=== PATIENT | female | born 1995 | race Caucasian/White ===

== ENCOUNTER 2024-08-04 08:40 | Outpatient (OUT) | payer BC, SELFPAY ==
--- OUTSIDE RECORDS SUMMARY | 2024-07-27 10:00 | XMS_ITS | Encounter Summary ---
Author Organization [facility] Address [address] [place] [address] Care Team Providers Care Computer Forensics Investigator Name Role Phone Harish Andres MD Primary Care Provider [phone] Bina Hilton NP Unavailable [phone] Reason for Visit * Reason Comments Annual Exam Encounter Details Date Type Department Care Team (Late st Contact Info) Description 07/27/2024 10:00 AM EDT [facility] [address] [place] [address] Venessa Puente NP [address] [place] [address] ROHITH (generalized anxiety disorder) (Primary Dx); Wellness examination; Dizziness and giddiness; Hypoglycemia Social History Tobacco Use Types Packs/Day Years Used Date Smoking Tobacco: Never Smokeless Tobacco: Never Alcohol Use Standard Drinks/Week Comments Never 0 (1 standard drink = 0.6 oz pur e alcohol) caffeine: 1-2 cups per day [id number] Health Literacy Answer Date Recor ded How often do you need to hav e someone help you when you read instructions, pamphlets, or other written material from your doctor or pharmacy? Never 10/29/2023 Social Connection and Isolation Panel [NHANES] A nswer Date Recorded In a typical week, how many times do you talk on the phone with family, friends, or neighbors? Once a week 10/29/2023 Frequency of Social Gatherings with Friends and Family Not on file 10/29/2023 How often do you attend buddhism or advent serv ices? Never 10/29/2023 Do you belong to any clubs o r organizations such as buddhism groups, unions, fraternal or athletic groups, or school groups? No 10/29/2023 How often do you attend meet ings of the clubs or organizations you belong to? Never 10/29/2023 Are you , , di vorced, , never , or living with a partner? 10/29/2023 AUDIT-C Answer Date Recorded Q1: How often do you have a drink containing alcohol? Never 10/29/2023 Q2: How many drinks containi ng alcohol do you have on a typical day when you are drinking? Patient does not drink Q3: How often do you have si x or more drinks on one occasion? Never 10/29/2023 Overall Financial Resource Strain (CARDIA) Answe r Date Recorded How hard is it for you to pa y for the very basics like food, housing, medical care, and heating? Not hard at all 10/29/2023 PHQ-2 Answer Date Recorded Patient Health Questionnaire-2 Score 0 10/30/2023 [facility] - Occupational Stress Questionnaire Answer Date Recorded Do you feel stress - tense, restless, nervous, or anxious, or unable to sleep at night because your mind is troubled all the time - these days? Only a little 10/29/2023 Exercise Vital Sign Answer Date Recorde d On average, how many days pe r week do you engage in moderate to strenuous exercise (like a brisk walk)? 2 days 10/29/2023 On average, how many minutes do you engage in exercise at this level? 30 min 10/29/2023 Hunger Vital Sign Answer Date Recorded Within the past 12 months, y ou worried that your food would run out before you got the money to buy more. Never true 10/29/19 24 Within the past 12 months, t he food you bought just didn't last and you didn't have money to get more. Never true 10/29/2023 PRAPARE - Transportation Answer Date Re corded In the past 12 months, has l ack of transportation kept you from medical appointments or from getting medications? No 10/18 In the past 12 months, has l ack of transportation kept you from meetings, work, or from getting things needed for daily living? No 10/29/2023 Housing Stability Vital Sign Answer Slade e Recorded In the last 12 months, was t here a time when you were not able to pay the mortgage or rent on time? No 10/29/2023 Number of Times Moved in the Last Year Not on fi le 10/29/2023 At any time in the past 12 m onths, were you homeless or living in a custodial (including now)? No 10/29/2023 Comments Unknown Sex and Gender Information Value Date Recorded Sex Assigned at Not on file Legal Sex Female 6:39 PM EDT Gender Identity Not on file Sexual Orientation Not on file documented as of this encounter Last Filed Vital Signs Vital Sign Reading Time Taken Comments Blood Pressure 98/68 07/27/2024 10:07 AM EDT Pulse 76 07/27/2024 10:07 AM EDT Temperature 36.9 C (98.5 F) 07/27/2024 10:07 AM EDT Respiratory Rate 18 07/27/2024 10:0 7 AM EDT Oxygen Saturation 98% 07/27/2024 10: 07 AM EDT Inhaled Oxygen Concentration - - Weight 62.1 kg (136 lb 12.8 oz) 025 10:07 AM EDT Height - - Body Mass Index 22.08 10/30/2023 8:37 AM EDT documented in this encounter Patient Instructions * Patient Instructions* Venessa Puente NP - 07/27/2024 10:00 AM EDT Get labs completed Log bood of events documented in this encounter Progress Notes * Venessa Puente NP - 07/27/2024 10:59 AM EDTAssociated Problem(s): Dizziness and giddiness Unclear etiology DD: hypoglycemia, panic attack, cardiac arrhythmia Keep log book fu in 4 weeks Check labs * MOHINDER ALANIS - 07/27/2024 10:00 AM EDT Pt would like to discuss possible low blood sugar- she states she often feels dizzy, shaky, sweaty if she doesn't eat for a little while or when she wakes up that way at times. Pt states she has feltthis way for a few years now. Pt does not recall for sure if there is family hx of diabetes and states she has never had a glucose or A1c done before. Pt would like a refill of her citalopram 20mg tab * Venessa Puente NP - 07/27/2024 10:00 AM EDT Images from the original note were not included. Unique Santos is a 29 y.o. female presents with chief complaint of Annual Exam HPI: Diet: pretty balanced Activity: no Mental Health Concerns: anxiety, Falls in the last year: no Any hearing problems:no Any Vision problems: wears glasses, scheduled for 08/11 Any Hospitalizations in the last year:- no Specialist: chainstitch zipper setter Concerns: Pt would like to discuss possible low blood sugar- she states she often feels dizzy, shaky, sweaty if she doesn't eat for a little while or when she wakes up that way at times. Pt states she has feltthis way for a few years now. Pt does not recall for sure if there is family hx of diabetes and states she has never had a glucose or A1c done before. Episodes infeq, once a month, can happen at random times, can happen regardless of eating or not. When this happens forces self to eat something usually something light d/t feeling nauseated Breakfast: overnight oats, sometimes fast food, lunch: left overs, supper time: chicken, veg. Coffee 2 cups daily, water: about 2-3 per day, does not drink much else. No monster drinks. Pt would like a refill of her citalopram 20mg tab Anxiety Presents for follow-up (dx mid 20's) visit. Symptoms include excessive worry, irritability (occ), muscle tension, nervous/anxious behavior and shortness of breath. Patient reports no chest pain, dizziness, insomnia, nausea, palpitations or suicidal ideas. Symptoms occur occasionally (more social situations). The severity of symptoms is mild. The patient sleeps 7 hours per night. The quality of sleep is good. Nighttime awakenings: several. Compliance with medications is 76-100%. SUBJECTIVE: MEDICATIONS: Current Outpatient Medications Medication Instructions citalopram (CELEXA) 20 mg, Oral, Nightly PARAGARD INTRAUTERINE COPPER IU 1 Intra Uterine Device, Once ALLERGIES: Allergies Allergen Reactions Penicillins Rash REVIEW OF SYMPTOMS: Review of Systems Constitutional: Positive for irritability (occ). Negative for appetite change, chills and fever. HENT: Negative for congestion, ear pain and sore throat. Eyes: Negative for pain, discharge, redness and visual disturbance. Respiratory: Positive for shortness of breath. Negative for cough and wheezing. Cardiovascular: Negative for chest pain, palpitations and leg swelling. Gastrointestinal: Negative for abdominal pain, blood in stool, constipation, diarrhea, nausea and vomiting. Genitourinary: Negative for difficulty urinating, dysuria and frequency. Musculoskeletal: Negative for arthralgias, back pain, joint swelling and myalgias. Skin: Negative for rash and wound. Neurological: Negative for dizziness, tremors, seizures, syncope and headaches. Psychiatric/Behavioral: Negative for behavioral problems, self-injury and suicidal ideas. The patient is nervous/anxious. The patient does not have insomnia. Hematological: Does not bruise/bleed easily. Endocrine: Negative for polydipsia, polyphagia and polyuria. Allergic/Immunologic: Negative for environmental allergies and food allergies. PAST MEDICAL HISTORY Past Medical History: Diagnosis Date Anxiety and depression ([facility]) Hx of ROHITH with panic attacks. Used to be on Celexa - ran out of it, just started using it again oneweek ago. While she was on Celexa - her anxiety/panic disorder was well controlled and she was doing well on it. She was being prescribed Celexa and Xanax by Dr Powell Asthma ([facility]) Past Surgical History: Procedure Laterality Date INTRAUTERINE DEVICE INSERTION 08/06/2021 family history includes Cancer in her maternal grandmother; Coronary artery disease in an other family member; Diabetes in her maternal grandmother; Hypertension in her father and mother; Lung cancerin an other family member. OBJECTIVE: Visit Vitals BP 98/68 (BP Location: Left arm, Patient Position: Sitting, BP Cuff Size: Adult long) Pulse 76 Temp 98.5 ??F (Temporal) Resp 18 Wt 136 lb 12.8 oz SpO2 98% BMI 22.08 kg/m?? Smoking Status Never BSA 1.7 m?? Physical Exam Vitals and nursing note reviewed. Constitutional: General: She is not in acute distress. Appearance: Normal appearance. HENT: Head: Normocephalic and atraumatic. Right Ear: External ear normal. Left Ear: External ear normal. Nose: Nose normal. Mouth/Throat: Mouth: Mucous membranes are moist. Eyes: Extraocular Movements: Extraocular movements intact. Conjunctiva/sclera: Conjunctivae normal. Neck: Vascular: No carotid bruit. Cardiovascular: Rate and Rhythm: Normal rate and regular rhythm. Pulses: Normal pulses. Heart sounds: Normal heart sounds. Pulmonary: Effort: Pulmonary effort is normal. Breath sounds: Normal breath sounds. Abdominal: General: Bowel sounds are normal. There is no distension. Palpations: Abdomen is soft. There is no mass. Tenderness: There is no abdominal tenderness. Musculoskeletal: General: Normal range of motion. Cervical back: Normal range of motion and neck supple. Lymphadenopathy: Cervical: No cervical adenopathy. Skin: General: Skin is warm and dry. Capillary Refill: Capillary refill takes 2 to 3 seconds. Findings: No rash. Neurological: General: No focal deficit present. Mental Status: She is alert and oriented to person, place, and time. Psychiatric: Mood and Affect: Mood normal. Behavior: Behavior normal. Thought Content: Thought content normal. Judgment: Judgment normal. ASSESSMENT AND PLAN: No follow-ups on file. Problem List Items Addressed This Visit ROHITH (generalized anxiety disorder) ([facility]) - Primary Current med: citalopram ROHITH 7=5 Is happy with dose of medications no changes needed Relevant Medications citalopram (CeleXA) 20 MG tablet Wellness examination No wellness exam completed today, only labs ordred Relevant Orders CBC and differential Comprehensive metabolic panel Lipid panel TSH Urinalysis with reflex microscopic (clean catch) Dizziness and giddiness Unclear etiology DD: hypoglycemia, panic attack, cardiac arrhythmia Keep log book fu in 4 weeks Check labs Relevant Orders T4, free Insulin, random Hemoglobin A1c Hypoglycemia Relevant Orders Insulin, random Hemoglobin A1c * Venessa Puente NP - 07/27/2024 6:32 AM EDTAssociated Problem(s): Wellness examination No wellness exam completed today, only labs ordred * Venessa Puente NP - 07/27/2024 6:31 AM EDTAssociated Problem(s): ROHITH (generalized anxiety disorder) Current med: citalopram ROHITH 7=5 Is happy with dose of medications no changes needed documented in this encounter Plan of Treatment Upcoming Encounters Date Type Department Care Team (Late st Contact Info) Description 08/30/2024 10:30 AM EDT Office Visit [facility] [address] [place] [address] Venessa Puente NP [address] [place] [address] Scheduled Orders Name Type Priority Associated Diagnoses Orde r Schedule CBC and differential Lab Routine Wellness examination Expected: 07/27/2024 (Approximate), Expires: 07/27/2025 Comprehensive metabolic panel Lab Routine Wellness examination Expected: 07/27/2024 (Approximate), Expires: 07/27/2025 Lipid panel Lab Routine Wellness examination Expected: 07/27/2024 (Approximate), Expires: 07/27/2025 TSH Lab Routine Wellness examination Expected: 07/27/2024 (Approximate), Expires: 07/27/2025 Urinalysis with reflex microscopic (clean catch) Lab Routine Wellness examination Expected: 07/27/2024 (Approximate), Expires: 07/27/2025 T4, free Lab Routine Dizziness and giddiness Expected: 07/27/2024 (Approximate), Expires: 07/27/2025 Insulin, random Lab Routine Dizziness and giddiness Hypoglycemia Expected: 07/27/2024 (Approximate), Expires: 07/27/2025 Hemoglobin A1c Lab Routine Dizziness and giddiness Hypoglycemia Expected: 07/27/2024 (Approximate), Expires: 07/27/2025 documented as of this encounter Visit Diagnoses Diagnosis ROHITH (generalized anxiety disorder)- Primary Generalized anxiety disorder Wellness examination Dizziness and giddiness Hypoglycemia Hypoglycemia, unspecified documented in this encounter Care Teams Computer Forensics Investigator Relationship Specialty Start Date End Date Harish Andres MD [address] [place] [address] PCP - General Family Medicine 10/16/23 Bina Hilton NP [address] [place] [address] Nurse Practitioner Family Medicine 10/16/23 documented as of this encounter
--- OUTSIDE RECORDS SUMMARY | 2024-08-04 08:50 | XMS_ITS | Clinical Summary ---
Author Organization [facility] Address [address] [place] [address] Care Team Providers Care High [employer] Library Media Specialist Name Role Phone Harish Andres MD Primary Care Provider [phone] Bina Hilton COLORECTAL SURGEON Unavailable [phone] Allergies Active Allergy Reactions Criticality Noted Date Comments Penicillins Rash Low 02/11/2023 Medications PARAGARD INTRAUTERINE COPPER IU 1 Intra Uterine Device by Intrauterine route 1 time Lot # [id number] Exp 02/2025 # [id number], [facility]#: [id number] 08/07/19 22 Active citalopram (CeleXA) 20 MG tabletIndication s:ROHITH (generalized anxiety disorder) Take 1 tablet (20 mg) by mouth at bedtime 90 tablet 07/28/19 25 025 Active citalopram (CeleXA) 20 MG tabletIndication s:ROHITH (generalized anxiety disorder) Take 1 tablet (20 mg) by mouth at bedtime 90 tablet 1 02/18/19 24 025 Discontin ued(Reord er) Active Problems Problem Noted Date Diagnosed Date Dizziness and giddiness 07/27/2024 Assessment & Plan (07/27/2024 10:59 AM EDT): Unclear etiology DD: hypoglycemia, panic attack, cardiac arrhythmia Keep log book fu in 4 weeks Check labs Hypoglycemia 07/27/2024 ROHITH (generalized anxiety disorder) 02/18/2023 Assessment & Plan (07/27/2024 10:46 AM EDT): Current med: citalopram ROHITH 7=5 Is happy with dose of medications no changes needed Assessment & Plan (10/30/2023 2:06 PM EDT): Currently taking Citalopram 20mg Has been on current dose since at least 02/2023. Feels symptoms are well controlled currently. Denies SI/HI. Does not do therapy, reports having good support system at home. Continue current regimen Assessment & Plan (02/18/2023 11:27 AM EST): Patient doing well on Citalopram. No adverse effects noted. Sleeping well. Did not have to use her PRN Xanax in past 6 months. C/w same. Wellness examination 02/18/2023 Assessment & Plan (07/27/2024 6:32 AM EDT): No wellness exam completed today, only labs ordred Assessment & Plan (02/18/2023 11:27 AM EST): Annual Wellness Visit. Reviewed medical surgical and social hx. Reviewed medications. Recommended to follow up with OBGYN for PAP smear. No complains to offer. Encounters Date Type Department Care Team Description 07/27/2024 10:00 AM EDT Office Visit [facility] [address] [place] [address] Venessa Puente NP ROHITH (generalized anxiety disorder) (Primary Dx); Wellness examination; Dizziness and giddiness; Hypoglycemia 07/27/2024 Abstract [facility] [address] [place] [address] Venessa Puente NP 07/27/2024 Bamboo flowsheet [facility] [address] [place] [address] Venessa Puente NP from Last 3 Months Family History Medical History Relation Name Comments Hypertension Father Cancer Maternal Grandmother Diabetes Maternal Grandmother Hypertension Mother Coronary artery disease Other Lung cancer Other Relation Name Status Comments Father Alive Maternal Grandmother Mother Alive Other Sister Alive Social History Tobacco Use Types Packs/Day Years Used Date Smoking Tobacco: Never Smokeless Tobacco: Never Tobacco Cessation:Counseling Given: No Alcohol Use Standard Drinks/Week Comments Never 0 [...] file 10/29/2023 How often do you attend confucianist or restoration serv ices? Never 10/29/2023 Do you belong to any clubs o r organizations such as confucianist groups, unions, fraternal or athletic groups, or [...] Recorded Patient Health Questionnaire-2 Score 0 10/30/2023 [facility] Occupat ional Health - Occupational Stress Questionnaire Answer Date Recorded [...] any time in the past 12 m [facility], were you homeless or living in a nursing home (including now)? No 10/29/2023 Comments Unknown Sex and Gender Information Value Date Recorded Sex Assigned at Not on file Legal Sex Female 6:39 PM EDT Gender Identity Not on file Sexual Orientation Not on file Last Filed Vital Signs Vital Sign Reading [...] 12.8 oz) 025 10:07 AM EDT Height 167.6 cm (5' 6 ) 10/30/2023 8:37 AM EDT Body Mass Index 22.08 10/30/2023 8:37 AM EDT Plan of Treatment Upcoming Encounters Date Type Department Care Team (Late st Contact Info) Description 08/30/2024 10:30 AM EDT Office Visit [facility] [address] [place] [address] Venessa Puente NP [address] [place] [address] Health Maintenance Due Date Last Done Comments HPV/Cotest 2023 Influenza Vaccine (Season Ended) 2024 Cervical Cancer Screening 02/17/2025 Pap Smear 02/17/2025 02/17/2022 Insurance [facility] Member Subscriber Plan / Payer (Ef fective 2022-Present) Name:Unique Santos Relation to Subscriber:Self Name:Unique Santos Payer ID:Not on file Type:Not on file Address: [address] Care Teams High [employer] Library Media Specialist Relationship Specialty Start Date End Date Harish Andres MD [address] [place] [address] PCP - General Family Medicine 10/16/23 Bina Hilton NP [address] [place] [address] Nurse Practitioner Family Medicine 10/16/23
--- OUTSIDE RECORDS SUMMARY | 2024-08-04 08:50 | XMS_ITS | Encounter Summary ---
Author Organization [facility] Address [address] [place] [address] Care Team Providers Care Auctioneer Automobile Name Role Phone Harish Andres MD Primary Care Provider [phone] Bina Hilton NP Unavailable [phone] Encounter Details Date Type Department Care Team (Late st Contact Info) Description 07/27/2024 Abstract [facility] [address] [place] [phone] Venessa Puente NP [address] [place] [address] Social History Tobacco Use Types Packs/Day Years [...] file 10/29/2023 How often do you attend evangelical or rastafarian serv ices? Never 10/29/2023 Do you belong to any clubs o r organizations such as evangelical groups, unions, fraternal or athletic groups, or [...] Patient Health Questionnaire-2 Score 0 10/30/2023 [facility] of Occupat ional Health - Occupational Stress [...] any time in the past [address] [facility], were you homeless or living in a [facility] (including now)? No 10/29/2023 Comments Unknown Sex and Gender Information Value Date Recorded Sex Assigned at Not on file Legal Sex Female 6:39 PM EDT Gender Identity Not on file Sexual Orientation Not on file documented as of this encounter Plan of Treatment Upcoming Encounters Date Type Department Care Team (Late st Contact Info) Description 08/30/2024 10:30 AM EDT Office Visit [facility] [address] [place] [address] Venessa Puente NP [address] [place] [address] documented as of this encounter Visit Diagnoses Not on filedocumented in this encounter Care Teams Auctioneer Automobile Relationship Specialty Start Date End Date Harish Andres MD [address] [place] [phone] PCP - General Family Medicine 10/16/23 Bina Hilton NP [address] [place] [address] Nurse Practitioner Family Medicine 10/16/23 documented as of this encounter
--- OUTSIDE RECORDS SUMMARY | 2024-08-04 08:50 | XMS_ITS | Encounter Summary ---
Author Organization [facility] Address [address] [place] [address] Care Team Providers Care Silk Soaker Name Role Phone Harish Andres MD Primary Care Provider [phone] Bina Hilton NP Unavailable [phone] Encounter Details Date Type Department Care Team (Late st Contact Info) Description 07/27/2024 Bamboo flowsheet [facility] [address] [place] [phone] Venessa Puente NP [address] [place] [address] Social History Tobacco Use Types Packs/Day Years [...] file 10/29/2023 How often do you attend taoist or christian serv ices? Never 10/29/2023 Do you belong to any clubs o r organizations such as taoist groups, unions, fraternal or athletic groups, or [...] Recorded Patient Health Questionnaire-2 Score 0 10/30/2023 [facility] Occupat [facility] - Occupational Stress Questionnaire Answer Date [...] any time in the past 12 m [facility], were you homeless or living in a [facility] (including now)? No 10/29/2023 Comments Unknown Sex [...] Office Visit [facility] [address] [place] [address] Venessa Puente NP [address] [place] [address] documented as of this encounter Visit Diagnoses Not on filedocumented in this encounter Care Teams Silk Soaker Relationship Specialty Start Date End Date Harish Andres MD [address] [place] [phone] PCP - General Family Medicine 10/16/23 Bina Hilton NP [address] [place] [address] Nurse Practitioner Family Medicine 10/16/23 documented as of this encounter
[2024-08-04 09:21] LABS: Basophils Absolute Auto 0.1 10^3/uL (0.0-0.1); Basophils Percent Auto 1.1 % (0.2-2.0); Eosinophils Absolute Auto 0.1 10^3/uL (0.0-0.7); Eosinophils Percent Auto 1.9 % (0.9-7.0); Hematocrit 33.3 % (36.0-48.0); Immature Granulocytes Abs Auto 0.01 10^3/uL (0.00-0.03); Immature Granulocytes Pct Auto 0.2 % (0.0-0.5); Lymphocytes Absolute Auto 1.9 10^3/uL (1.2-3.8); Lymphocytes Percent Auto 40.2 % (20.5-60.0); Mean Corpuscular Hemoglobin 20.4 pg (26.7-34.0); Mean Corpuscular Volume 68.1 fL (81.0-99.0); Monocytes Absolute Auto 0.6 10^3/uL (0.3-0.8); Neutrophils Absolute Auto 2.1 10^3/uL (1.4-6.5); Neutrophils Percent Auto 44.6 % (43.0-75.0); Platelet Count 239 10^3/uL (150-450); Red Blood Count 4.89 10^6/uL (4.20-5.40); Red Cell Distribution Width 18.2 % (11.0-15.0); White Blood Count 4.7 10^3/uL (4.0-11.0)
[2024-08-04 09:30] LABS: Bilirubin Urine NEGATIVE (NEGATIVE); Blood Urine NEGATIVE (NEGATIVE); Clarity Urine CLEAR (CLEAR); Color Urine LT. YELLOW (YELLOW); Glucose Urine UA NEGATIVE (NEGATIVE); Ketones Urine NEGATIVE (NEGATIVE); Leukocyte Esterase Urine NEGATIVE (NEGATIVE); Nitrite Urine NEGATIVE (NEGATIVE); Protein Urine NEGATIVE (NEG/TRACE); Urobilinogen Urine 0.2 EU/dL (0.2-1.0)
[2024-08-04 09:45] LABS: Estimated Average Glucose 108 mg/dL; Glycohemoglobin A1C 5.4 % (4.5-6.2)
[2024-08-04 09:48] LABS: Urine Microscopic Indicated NO
[2024-08-04 10:00] LABS: Alanine Aminotransferase 20 U/L (14-59); Albumin Globulin Ratio 1.1; Alkaline Phosphatase 52 U/L (46-116); Aspartate Amino Transferase 19 U/L (15-37); BUN Creatinine Ratio 23.3; Bilirubin Total 0.4 mg/dL (0.2-1.0); Calcium 8.9 mg/dL (8.5-10.1); Carbon Dioxide 27.1 mmol/L (21.0-32.0); Chloride 102 mmol/L (98-107); Chol HDL Ratio 2.5; Cholesterol 179 mg/dL (<=200); Estimated GFR (African America >60 (>=60 mL/min/1.73m^2); Estimated GFR (Non-African Ame >60 (>=60 mL/min/1.73m^2); Globulin 3.6 g/dL; Glucose 88 mg/dL (74-106); HDL Cholesterol 71 mg/dL (40-60); Potassium 4.1 mmol/L (3.5-5.1); Sodium 139 mmol/L (136-145); Thyroid Stimulating Hormone 1.398 uIU/mL (0.358-3.740); Total Protein 7.6 g/dL (6.4-8.2); Triglycerides 91 mg/dL (<=150); VLDL CHOLESTEROL 18.2 mg/dL
[2024-08-04 10:35] LABS: Free T4 0.93 ng/dL (0.76-1.46)
[2024-08-05 07:08] LABS: Insulin 3.7 uIU/mL (2.6-24.9)
== END 2024-08-04 08:41 | disposition home or self-care (01) ==
LOC: LAB 08:44
PROVIDERS: PCP Nurse Practitioner; Visit Provider Nurse Practitioner
DX: Z00.00 Encounter for general adult medical examination without abnormal findings (principal); R42 Dizziness and giddiness; E16.2 Hypoglycemia, unspecified
CPT/HCPCS: 36415; 80053; 80061; 81003; 83036; 83525; 84439; 84443; 85025

== ENCOUNTER 2024-08-16 09:51 | Outpatient (OUT) | payer BC, SELFPAY ==
--- OUTSIDE RECORDS SUMMARY | 2024-08-16 09:58 | XMS_ITS | Encounter Summary ---
Author Organization [facility] Address [address] [place] [address] Care Team Providers Care Mangle Press Catcher Name Role Phone Harish Andres MD Primary Care Provider [phone] Bina Hilton NP Unavailable [phone] Encounter Details Date Type Department Care Team (Late st Contact Info) Description 07/27/2024 Abstract [facility] [address] [place] [phone] Venessa Puente NP [address] [place] [id number] Social History Tobacco Use Types Packs/Day Years [...] file 10/29/2023 How often do you attend yazdanism or anabaptist serv ices? Never 10/29/2023 Do you belong to any clubs o r organizations such as yazdanism groups, unions, fraternal or athletic groups, or [...] Recorded Patient Health Questionnaire-2 Score 0 10/30/2023 [facility] of Occupat ional Health - Occupational Stress [...] any time in the past 12 m [facility], were you homeless or living in a long-term (including now)? No 10/29/2023 Comments Unknown Sex [...] Visit [facility] [address] [place] [address] Venessa Puente NP [address] [place] [phone] documented as of this encounter Visit Diagnoses Not on filedocumented in this encounter Care Teams Mangle Press Catcher Relationship Specialty Start Date End Date Harish Andres MD [address] [place] [phone] PCP - General Family Medicine 10/16/23 Bina Hilton NP [address] [place] [phone] Nurse Practitioner Family Medicine 10/16/23 documented as of this encounter
--- OUTSIDE RECORDS SUMMARY | 2024-08-16 09:58 | XMS_ITS | Clinical Summary ---
Author Organization [facility] Address [address] [place] [address] Care Team Providers Care Skip Hoist Operator Name Role Phone Harish Andres MD Primary Care Provider [phone] Bina Hilton VISITING TEACHER Unavailable [phone] Allergies Active Allergy Reactions Criticality Noted Date Comments Penicillins Rash Low 02/11/2023 Medications PARAGARD INTRAUTERINE COPPER IU 1 Intra Uterine Device by Intrauterine route 1 time Lot # [id number] Exp 02/2025 # [id number], [facility] [place] [id number] 08/07/19 22 Active citalopram (CeleXA) 20 MG tabletIndication s:ROHITH (generalized anxiety disorder) Take 1 tablet (20 mg) by mouth at bedtime 90 tablet 07/28/19 25 025 Active citalopram (CeleXA) 20 MG tabletIndication s:ROHITH (generalized anxiety disorder) Take 1 tablet (20 mg) by mouth at bedtime 90 tablet 1 02/18/19 24 025 Discontin ued(Reord er) Active Problems Problem Noted Date Diagnosed Date Iron deficiency anemia 08/09/2024 Dizziness and giddiness 07/27/2024 Assessment & Plan [...] Encounters Date Type Department Care Team Description 08/09/2024 Orders Only [facility] [address] [place] [address] Venessa Puente NP Iron deficiency anemia, unspecified iron deficiency anemia type (Primary Dx) 08/04/2024 Clinisync Result Encounter [facility] External Department Unsolicited Venessa Puente NP 07/27/2024 10:00 AM EDT Office Visit [facility] [address] [place] [address] Venessa Puente NP ROHITH (generalized anxiety disorder) (Primary Dx); Wellness examination; Dizziness and giddiness; Hypoglycemia 07/27/2024 Abstract [facility] [address] [place] [address] Venessa Puente NP 07/27/2024 Bamboo flowsheet [facility] [address] [place] [address] Venessa Puente NP from Last 3 Months [...] file 10/29/2023 How often do you attend cheondoism or faith serv ices? Never 10/29/2023 Do you belong to any clubs o r organizations such as cheondoism groups, unions, fraternal or athletic groups, or [...] Recorded Patient Health Questionnaire-2 Score 0 10/30/2023 [facility] [place] of Occupat ional Health - Occupational Stress [...] any time in the past 12 m [facility], were you homeless or living in a long term (including now)? No 10/29/2023 Comments Unknown Sex [...] 08/30/2024 10:30 AM EDT Office Visit [facility] [address] [place] [address] Venessa Puente NP [address] [place] [address] Health Maintenance Due Date Last Done Comments HPV/Cotest 2023 Influenza Vaccine (Season Ended) 2024 Cervical Cancer Screening 02/17/2025 Pap Smear 02/17/2025 02/17/2022 Procedures Procedure Name Priority Date/Time Associated Diagnosis Comments TBH INSULIN Routine 08/04/2024 9:14 AM EDT ALL THYROXINE (T4) FREE Routine 08/04/2024 9:14 AM EDT ALL THYROID STIM HORMONE Routine 08/04/2024 9:14 AM EDT ALL LIPID PROFILE (FASTING) Routine 08/04/2024 9:14 AM EDT [facility] CMP (CMP) (FOR REMOTE [facility] USE) Routine 08/04/2024 9:14 AM EDT MLR HEMOGLOBIN A1C Routine 08/04/2024 9: 14 AM EDT ALL CBC WITH AUTO DIFF Routine 08/04/2024 9:14 AM EDT TBH UA (CLEAN/CATCH) MICROSCOPIC IF INDICATE Routine 08/04/2024 8:57 AM EDT from Last 3 Months Results * TBH INSULIN (08/04/2024 9:14 AM EDT) INSULIN 3.7 2.6 - 24.9 uIU/mL TBH Comment: Performed at: [address] [id number] Anglesmith: Kwadwo Toledo PhD, Phone: [phone] 08/04/2024 9:14 AM EDT 08/04/2024 9:16 AM EDT Narrative CLINISYNC - 08/05/2024 7:08 AM EDT Venessa Puente NP [facility] Final [facility] * MLR HEMOGLOBIN A1C (08/04/2024 9:14 AM EDT) GLYCOHEMOGLOBIN A1C 5.4 4.5 - 6.2 % TB Comment: ADA RECOMMENDED LIMIT 4.0 - 6.0 ADA THERAPEUTIC TARGET < 7.0 ACTION SUGGESTED > 7.0 ESTIMATED AVERAGE GLUCOSE 108 mg/dL TBH 08/04/2024 9:14 AM EDT 08/04/2024 9:16 AM EDT Narrative CLINISYNC - 08/04/2024 9:56 AM EDT Venessa Puente NP [facility] Final [facility] * [facility] CMP (CMP) (FOR REMOTE [facility] USE) (08/04/2024 9:14 AM EDT) SODIUM 139 136 - 145 mmol/L TBH POTASSIUM 4.1 3.5 - 5.1 mmol/L TBH CHLORIDE 102 98 - 107 mmol/L TBH CARBON DIOXIDE 27.1 21.0 - 32.0 mmol/L TBH ANION GAP 14.0 TBH GLUCOSE 88 74 - 106 mg/dL TBH BLOOD UREA NITROGEN 14.0 7.0 - 18.0 mg/dL TBH CREATININE 0.60 0.55 - 1.02 mg/dL TBH TBH EGFR-AF GEORGIAN >60 >=60 mL/min/1. 73m 2 TBH TBH EGFR-NON AF GEORGIAN >60 >=60 mL/min/1. 73m 2 TBH BUN CREATININE RATIO 23.3 TBH CALCIUM 8.9 8.5 - 10.1 mg/dL TBH BILIRUBIN TOTAL 0.4 0.2 - 1.0 mg/dL TBH ASPARTATE AMINO TRANSFERASE 19 15 - 37 U/L TBH ALANINE AMINOTRANSFERASE 20 14 - 59 U/L TBH ALKALINE PHOSPHATASE 52 46 - 116 U/L TBH TOTAL PROTEIN 7.6 6.4 - 8.2 g/dL TBH ALBUMIN LEVEL 4.0 3.4 - 5.0 g/dL TBH GLOBULIN 3.6 g/dL TBH ALBUMIN GLOBULIN RATIO 1.1 TBH 08/04/2024 9:14 AM EDT 08/04/2024 9:16 AM EDT Narrative CLINISYNC - 08/04/2024 10:05 AM EDT Venessa Puente NP CLINISYNC Final Result Performing Organization Address [facility]/ZIP Co de Phone Number [facility] * ALL THYROXINE (T4) FREE (08/04/2024 9:14 AM EDT) FREE T4 0.93 0.76 - 1.46 ng/dL TB 08/04/2024 9:14 AM EDT 08/04/2024 9:16 AM EDT Narrative CLINISYNC - 08/04/2024 10:51 AM EDT Venessa Puente NP [facility] Final [facility] * ALL THYROID STIM HORMONE (08/04/2024 9:14 AM EDT) THYROID STIMULATING HORMONE 1.398 0.358 - 3.740 uIU/mL TB 08/04/2024 9:14 AM EDT 08/04/2024 9:16 AM EDT Narrative CLINISYNC - 08/04/2024 10:05 AM EDT Venessa Cindi VISITING TEACHER CLINISYNC Final Result Performing Organization Address [facility]/ZIP Co de Phone Number [facility] * (ABNORMAL) ALL LIPID PROFILE (FASTING) (08/04/2024 9:14 AM EDT) TRIGLYCERIDES 91 <=150 mg/dL TBH CHOLESTEROL 179 <=200 mg/dL TB HDL CHOLESTEROL 71(H) 40 - 60 mg/dL TB Comment: > or =60 mg/dl - LOW CARDIOVASCULAR RISK <40 mg/dl - HIGH CARDIOVASCULAR RISK LDL CHOLESTEROL CALCULATED 90.0 mg/dL TB Comment: <100 mg/dl OPTIMAL 100-129 mg/dl NEAR OR ABOVE OPTIMAL 130-159 mg/dl BORDERLINE HIGH 160-189 mg/dl HIGH >190 mg/dl VERY HIGH VLDL CHOLESTEROL 18.2 mg/dL TB CHOL HDL RATIO 2.5 TB Comment: 3.3 - 4.4 LOW RISK 4.4 - 7.1 AVERAGE RISK 7.1 - 11.0 MODERATE RISK >11.0 HIGH RISK 08/04/2024 9:14 AM EDT 08/04/2024 9:16 AM EDT [facility] CLINISYNC - 08/04/2024 10:05 AM EDT Venessa Puente NP CLINISYNC Final Result Performing Organization Address [facility] Co de Phone Number [facility] * (ABNORMAL) ALL CBC WITH AUTO DIFF (08/04/2024 9:14 AM EDT) TBH WBC 4.7 4.0 - 11.0 10 3/uL TBH TBH RBC 4.89 4.20 - 5.40 10 6/uL TBH TBH HGB 10.0(L) 12.0 - 16.0 g/dL TBH TBH HCT 33.3(L) 36.0 - 48.0 % TBH TBH MCV 68.1(L) 81.0 - 99.0 fL TBH TBH MCH 20.4(L) 26.7 - 34.0 pg TBH TBH MCHC 30.0 29.9 - 35.2 g/dL TBH TBH RDW 18.2(H) 11.0 - 15.0 % TBH TBH PLT 239 150 - 450 10 3/uL TBH TBH MPV 11.0 9.5 - 13.5 fL TBH NEUTROPHILS PERCENT AUTO 44.6 43.0 - 75.0 % TBH LYMPHOCYTES PERCENT AUTO 40.2 20.5 - 60.0 % TBH MONOCYTES PERCENT AUTO 12.0 1.7 - 12.0 % TBH TBH EO % 1.9 0.9 - 7.0 % TBH BASOPHILS PERCENT AUTO 1.1 0.2 - 2.0 % TBH IMMATURE GRANULOCYTES PCT AUTO 0.2 0.0 - 0.5 % TBH NEUTROPHILS ABSOLUTE AUTO 2.1 1.4 - 6.5 10 3/uL TBH LYMPHOCYTES ABSOLUTE AUTO 1.9 1.2 - 3.8 10 3/uL TBH MONOCYTES ABSOLUTE AUTO 0.6 0.3 - 0.8 10 3/uL TBH TBH EO # 0.1 0.0 - 0.7 10 3/uL TBH BASOPHILS ABSOLUTE AUTO 0.1 0.0 - 0.1 10 3/uL TBH IMMATURE GRANULOCYTES ABS AUTO 0.01 0.00 - 0.03 10 3/uL TBH 08/04/2024 9:14 AM EDT 08/04/2024 9:16 AM EDT Narrative CLINISYNC - 08/04/2024 9:22 AM EDT us Venessa Puente NP CLINISYNC Final Result CLINISYNC TB * TBH UA (CLEAN/CATCH) MICROSCOPIC IF INDICATE (08/04/2024 8:57 AM EDT) COLOR URINE LT. YELLOW YELLOW TBH CLARITY URINE CLEAR CLEAR TBH SPECIFIC GRAVITY URINE 1.010 1.005 - 1.025 TBH PH URINE 7.0 5.0 - 9.0 TBH PROTEIN URINE NEGATIVE NEG/TRACE mg/dL TBH GLUCOSE URINE UA NEGATIVE NEGATIVE mg/dL TBH BILIRUBIN URINE NEGATIVE NEGATIVE TBH KETONES URINE NEGATIVE NEGATIVE mg/dL TBH BLOOD URINE NEGATIVE NEGATIVE TBH NITRITE URINE NEGATIVE NEGATIVE TBH UROBILINOGEN URINE 0.2 0.2 - 1.0 EU/dL TBH LEUKOCYTE ESTERASE URINE NEGATIVE NEGATIVE TBH URINE MICROSCOPIC INDICATED NO TBH 08/04/2024 8:57 AM EDT 08/04/2024 9:16 AM EDT Narrative CLINISYNC - 08/04/2024 9:48 AM EDT us Venessa Puente VISITING TEACHER CLINISYNC Final Result CLINISYNC TBH from Last 3 Months Insurance [facility] Member Subscriber Plan / Payer (Ef fective 2022-Present) Name:Unique Santos Relation to Subscriber:Self Name:Unique Santos Payer ID:Not on file Type:Not on file Address: [address] Care Teams Skip Hoist Operator Relationship Specialty Start Date End Date Harish Andres MD [address] [place] [phone] PCP - General Family Medicine 10/16/23 Bina Hilton NP [address] [place] [address] Nurse Practitioner Family Medicine 10/16/23
--- OUTSIDE RECORDS SUMMARY | 2024-08-16 09:58 | XMS_ITS | Encounter Summary ---
Author Organization [facility] Address [address] [facility] [place] [address] Care Team Providers Care Pocket Cutter Name Role Phone Harish Andres MD Primary Care Provider [phone] Bina Hilton NP Unavailable [phone] Encounter Details Date Type Department Care Team (Late st Contact Info) Description 08/04/2024 Clinisync Result Encounter [facility] External Department Unsolicited Venessa Puente NP [address] [place] [phone] Social History Tobacco Use Types Packs/Day Years [...] file 10/29/2023 How often do you attend adventist or yazidism serv ices? Never 10/29/2023 Do you belong to any clubs o r organizations such as adventist groups, unions, fraternal or athletic groups, or [...] Recorded Patient Health Questionnaire-2 Score 0 10/30/2023 [facility] of Occupat ional Health - Occupational Stress [...] were you homeless or living in a fpc (including now)? No 10/29/2023 Comments Unknown Sex [...] Visit [facility] [address] [place] [address] Venessa Puente, HUMAN RESOURCES HR REPRESENTATIVE [address] [place] [address] documented as of this encounter Procedures Procedure Name Priority Date/Time Associated Diagnosis Comments TBH INSULIN Routine 08/04/2024 9:14 AM EDT MLR HEMOGLOBIN A1C Routine 08/04/2024 9: 14 AM EDT [facility] CMP (CMP) (FOR REMOTE COUNT INCLUDES [facility] USE) Routine 08/04/2024 9:14 AM EDT ALL THYROXINE (T4) FREE Routine 08/04/2024 9:14 AM EDT ALL THYROID STIM HORMONE Routine 08/04/2024 9:14 AM EDT ALL LIPID PROFILE (FASTING) Routine 08/04/2024 9:14 AM EDT ALL CBC WITH AUTO DIFF Routine 08/04/2024 9:14 AM EDT TBH UA (CLEAN/CATCH) MICROSCOPIC IF INDICATE Routine 08/04/2024 8:57 AM EDT documented in this encounter Results * TBH INSULIN (08/04/2024 9:14 AM EDT) INSULIN 3.7 2.6 - 24.9 uIU/mL TB Comment: Performed at: [facility] [id number] Media Arts Professor: Kwadwo Toledo PhD, Phone: [phone] 08/04/2024 9:14 AM EDT 08/04/2024 9:16 AM EDT Narrative CLINISYNC - 08/05/2024 7:08 AM EDT Venessa Puente HUMAN RESOURCES HR REPRESENTATIVE CLINISYNC Final Result Performing Organization Address [facility] Co de Phone Number CLINISYPR TB * ALL THYROXINE (T4) FREE (08/04/2024 9:14 AM EDT) FREE T4 0.93 0.76 - 1.46 ng/dL TBH 08/04/2024 9:14 AM EDT 08/04/2024 9:16 AM EDT Narrative CLINISYNC - 08/04/2024 10:51 AM EDT us Venessa Puente HUMAN RESOURCES HR REPRESENTATIVE CLINISYNC Final Result Performing Organization Address [facility] Co de Phone Number CLINISYPR TB * ALL THYROID STIM HORMONE (08/04/2024 9:14 AM EDT) THYROID STIMULATING HORMONE 1.398 0.358 - 3.740 uIU/mL TBH 08/04/2024 9:14 AM EDT 08/04/2024 9:16 AM EDT Narrative CLINISYNC - 08/04/2024 10:05 AM EDT Venessa Puente HUMAN RESOURCES HR REPRESENTATIVE CLINISYNC Final Result Performing Organization Address [facility] de Phone Number CLINISYPR TB * (ABNORMAL) ALL LIPID PROFILE (FASTING) (08/04/2024 9:14 AM EDT) TRIGLYCERIDES 91 <=150 mg/dL TBH CHOLESTEROL 179 <=200 mg/dL TBH HDL CHOLESTEROL 71(H) 40 - 60 mg/dL TBH Comment: > or =60 mg/dl - LOW CARDIOVASCULAR RISK <40 mg/dl - HIGH CARDIOVASCULAR RISK LDL CHOLESTEROL CALCULATED 90.0 mg/dL TB Comment: <100 mg/dl OPTIMAL 100-129 mg/dl NEAR OR ABOVE OPTIMAL 130-159 mg/dl BORDERLINE HIGH 160-189 mg/dl HIGH >190 mg/dl VERY HIGH VLDL CHOLESTEROL 18.2 mg/dL TBH CHOL HDL RATIO 2.5 TB Comment: 3.3 - 4.4 LOW RISK 4.4 - 7.1 AVERAGE RISK 7.1 - 11.0 MODERATE RISK >11.0 HIGH RISK 08/04/2024 9:14 AM EDT 08/04/2024 9:16 AM EDT Narrative CLINISYNC - 08/04/2024 10:05 AM EDT us Venessa Puente NP CLINISYNC Final Result CLINISYNC [facility] * CCF CMP (CMP) (FOR REMOTE COUNT INCLUDES THE [facility] USE) (08/04/2024 9:14 AM EDT) SODIUM [...] 0.55 - 1.02 mg/dL TBH TBH EGFR-AF URUGUAYAN >60 >=60 mL/min/1. 73m 2 TBH TBH EGFR-NON AF URUGUAYAN >60 >=60 mL/min/1. 73m 2 TBH BUN [...] 3.6 g/dL TBH ALBUMIN GLOBULIN RATIO 1.1 TB 08/04/2024 9:14 AM EDT 08/04/2024 9:16 AM EDT Narrative CLINISYNC - 08/04/2024 10:05 AM EDT Venessa Puente NP CLINISYNC Final Result Performing Organization Address [facility] Co de Phone [facility] * MLR HEMOGLOBIN A1C (08/04/2024 9:14 AM EDT) GLYCOHEMOGLOBIN A1C 5.4 4.5 - 6.2 % [facility] Comment: ADA RECOMMENDED LIMIT 4.0 - 6.0 ADA THERAPEUTIC TARGET < 7.0 ACTION SUGGESTED > 7.0 ESTIMATED AVERAGE GLUCOSE 108 mg/dL TB 08/04/2024 9:1 4 AM EDT 08/04/2024 9:16 AM EDT Narrative CLINISYNC - 08/04/2024 9:56 AM EDT Venessa Puente NP CLINISYPR Final Result Performing Organization Address [facility] de Phone Number * (ABNORMAL) ALL CBC WITH AUTO DIFF (08/04/2024 9:14 AM EDT) TB WBC 4.7 4.0 - 11.0 10 3/uL TBH TBH RBC 4.89 4.20 - 5.40 10 6/uL TBH TBH HGB 10.0(L) 12.0 - 16.0 g/dL TB TBH HCT 33.3(L) 36.0 - 48.0 % TBH TBH MCV 68.1(L) 81.0 - 99.0 fL TBH TBH MCH 20.4(L) 26.7 - 34.0 pg TBH TBH MCHC 30.0 29.9 - 35.2 g/dL TB TBH RDW 18.2(H) 11.0 - 15.0 % [...] us Venessa Puente NP [facility]IS[facility]NC Final [facility] * [facility]H UA (CLEAN/CATCH) MICROSCOPIC IF INDICATE [...] 08/04/2024 9:48 AM EDT us Venessa Puente HUMAN RESOURCES HR REPRESENTATIVE CLINISYNC Final Result CLINISYNC [facility] documented in this encounter Visit Diagnoses Not on filedocumented in this encounter Care Teams Pocket Cutter Relationship Specialty Start Date End Date Harihs Andres MD [address] [place] [address] PCP - General Family Medicine 10/16/23 Bina Hilton NP [address] [place] [address] Nurse Practitioner Family Medicine 10/16/23 documented as of this encounter
[2024-08-16 10:57] LABS: Percent Iron Saturation 3.3 %
[2024-08-16 13:58] LABS: Internal Control Within Normal Limits; Occult Blood Negative
[2024-08-17 02:11] LABS: Vitamin B12 387 pg/mL (232-1245)
[2024-08-17 04:07] LABS: Transferrin 373 mg/dL (192-364)
== END 2024-08-16 09:52 | disposition home or self-care (01) ==
PROVIDERS: PCP Nurse Practitioner; Visit Provider Nurse Practitioner
DX: D50.9 Iron deficiency anemia, unspecified (principal)
CPT/HCPCS: 36415; 82607; 82728; 83540; 83550; 84466; G0328

== ENCOUNTER 2024-10-08 09:48 | Outpatient (OUT) | payer BC, SELFPAY ==
--- OUTSIDE RECORDS SUMMARY | 2024-10-08 09:53 | XMS_ITS | Clinical Summary ---
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 Name Role Phone Harish Andres MD Primary Care Provider [phone] Bina Hilton EMERGENCY WORKER Unavailable [phone] Allergies Active Allergy Reactions Criticality Noted Date Comments Penicillins Rash Low 02/11/2023 Medications PARAGARD INTRAUTERINE COPPER IU 1 Intra Uterine Device by Intrauterine route 1 time Lot # [id number] Exp 02/2025 # [id number], [facility]#: [address]-7 08/07/19 22 Active citalopram (CeleXA) 10 MG tabletIndication s:ROHITH (generalized anxiety disorder) Take 1 tablet (10 mg) by mouth Daily 90 tablet 08/31/19 25 025 Active ferrous sulfate (Fe Tabs) 325 (65 Fe) MG EC tabletIndication s:Iron deficiency anemia, unspecified iron deficiency anemia type Take 1 tablet (325 mg) by mouth in the morning and 1 tablet (325 mg) in the evening. Take before meals. Do not crush, chew, or split. 60 tablet 1 08/17/19 25 025 Active Problems Problem Noted Date Diagnosed Date Iron deficiency anemia 08/09/2024 Assessment & Plan (08/30/2024 11:12 AM EDT): Currently prescribed ferrous sulfate twice a day Check labs in about 3 weeks, order given Dizziness and giddiness 07/27/2024 Assessment & Plan (08/30/2024 11:12 AM EDT): Reviewed labs Improving with addition of ferrous sulfate Check labs in about 3 weeks Assessment & Plan (07/27/2024 10:59 AM EDT): Unclear etiology DD: hypoglycemia, panic attack, cardiac arrhythmia Keep log book fu in 4 weeks Check labs Hypoglycemia 07/27/2024 ROHITH (generalized anxiety disorder) 02/18/2023 Assessment & Plan (08/30/2024 11:13 AM EDT): Current med: citalopram 20mg makes her dizzy Cuts pill in half and does well Will keep at 10mg Assessment & Plan (07/27/2024 10:46 AM EDT): [...] for PAP smear. No complains to offer. Resolved Problems Problem Noted Date Diagnosed Date Resolved Date CARRIE (iron deficiency anemia) 08/16/2024 08/16/2024 Encounters Date Type Department Care Team Description 08/30/2024 10:30 AM EDT Office Visit [facility] [address] [place] [address] Venessa Puente NP Iron deficiency anemia, unspecified iron deficiency anemia type (Primary Dx); Dizziness and giddiness; ROHITH (generalized anxiety disorder) 08/30/2024 Bamboo flowsheet [facility] [address] [place] [address] Venessa Puente NP 08/16/2024 Refill [facility] [address] [place] [address] Venessa Puente NP Iron deficiency anemia, unspecified iron deficiency anemia type (Primary Dx) 08/16/2024 Clinisync Result Encounter [facility] External Department Unsolicited Venessa Puente NP 08/09/2024 Orders Only [facility] [address] [place] [address] Venessa Puente NP Iron deficiency anemia, unspecified iron deficiency anemia type (Primary Dx) 08/04/2024 Clinisync Result Encounter [facility] Unsolicited Venessa Puente NP 07/27/2024 10:00 AM EDT Office Visit [facility] [address] [place] [address] Venessa Puente NP ROHITH (generalized anxiety disorder) (Primary Dx); Wellness examination; Dizziness and giddiness; Hypoglycemia 07/27/2024 Abstract [facility] [address] [place] [address] Venessa Puente NP 07/27/2024 Bamboo flowsheet [facility] [address] [place] [id number] Venessa Puente NP from Last 3 Months [...] file 10/29/2023 How often do you attend scientologist or jain serv ices? Never 10/29/2023 Do you belong to any clubs o r organizations such as scientologist groups, unions, fraternal or athletic groups, or [...] Recorded Patient Health Questionnaire-2 Score 0 10/30/2023 [facility] [place] [facility] Occupat ional [facility] - Occupational Stress [...] any time in the past 12 m [facility], were you homeless or living in a assisted (including now)? No 10/29/2023 Comments Unknown Sex and Gender Information Value Date Recorded Sex Assigned at Not on file Legal Sex Female 6:39 PM EDT Gender Identity Not on file Sexual Orientation Not on file Last Filed Vital Signs Vital Sign Reading Time Taken Comments Blood Pressure 92/62 08/30/2024 10:45 AM EDT Pulse 73 08/30/2024 10:45 AM EDT Temperature 36.8 C (98.3 F) 08/30/2024 10:45 AM EDT Respiratory Rate 18 08/30/2024 10:45 AM EDT Oxygen Saturation 99% 08/30/2024 10:45 AM EDT Inhaled Oxygen Concentration - - Weight 60.9 kg (134 lb 3.2 oz) 08/30/2024 10:45 AM EDT Height 167.6 cm (5' 6 ) 10/30/2023 8:37 AM EDT Body Mass Index 21.66 10/30/2023 8:37 AM EDT Plan of Treatment Upcoming Encounters Date Type Department Care Team (Late st Contact Info) Description 11/09/2024 9:20 AM EDT Office Visit [facility] [address] [place] [address] Venessa Puente NP [address] [place] [address] Health Maintenance Due Date Last Done Comments HPV/Cotest 2023 Cervical Cancer Screening 02/17/2025 Pap Smear 02/17/2025 02/17/2022 Influenza Vaccine (#1) 2025 Postp oned from 10/18/2024 (Patient Refused) Procedures Procedure Name Priority Date/Time Associated Diagnosis Comments OCCULT BLOOD* Routine 08/16/2024 12:30 PM EDT TRANSFERRIN Routine 08/16/2024 10:09 AM EDT VITAMIN B12 Routine 08/16/2024 10:09 AM EDT [facility] FERRITIN Routine 08/16/2024 10:09 AM EDT METRO IRON AND TIBC Routine 08/16/2024 1 0:09 AM EDT TB[facility] INSULIN Routine 08/04/2024 9:14 AM EDT ALL THYROXINE (T4) FREE Routine 08/04/2024 9:14 AM EDT ALL THYROID STIM HORMONE Routine 08/04/2024 9:14 AM EDT ALL LIPID PROFILE (FASTING) Routine 08/04/2024 9:14 AM EDT [facility] CMP (CMP) (FOR REMOTE [facility] USE) Routine 08/04/2024 9:14 AM EDT MLR HEMOGLOBIN A1C Routine 08/04/2024 9: 14 AM EDT ALL CBC WITH AUTO DIFF Routine 08/04/2024 9:14 AM EDT TBH UA (CLEAN/CATCH) MICROSCOPIC IF INDICATE Routine 08/04/2024 8:57 AM EDT from Last 3 Months Results * OCCULT BLOOD* (08/16/2024 12:30 PM EDT) TB OCCULT BLOOD Negative TB 08/16/2024 12:3 0 PM EDT 08/16/2024 1:23 PM EDT Narrative CLINISYNC - 08/16/2024 1:58 PM EDT us Venessa Puente NP LAB BLOOD ORDERABLES Final Resu lt Performing Organization Address [facility] Co de Phone Number [facility] * VITAMIN B12 (08/16/2024 10:09 AM EDT) VITAMIN B12 387 232 - 1245 pg/mL TB Comment: Performed at: [address] [id number] Associate Director Of Biostatistics: Kwadwo Toledo PhD, Phone: [phone] 08/16/2024 10:0 9 AM EDT 08/16/2024 10:13 AM EDT Narrative CLINISYNC - 08/17/2024 2:11 AM EDT us Venessa Puente NP LAB BLOOD ORDERABLES Final Resu lt Performing Organization Address City/[facility]/ZIP Co de Phone Number [facility] * (ABNORMAL) TRANSFERRIN (08/16/2024 10:09 AM EDT) TRANSFERRIN 373(A) 192 - 364 mg/dL TB Comment: Performed at: [address] [id number] Associate Director Of Biostatistics: Kwadwo Toledo PhD, Phone: [phone] 08/16/2024 10:0 9 AM EDT 08/16/2024 10:13 AM EDT Narrative CLINISYNC - 08/17/2024 4:07 AM EDT Venessa Puente EMERGENCY WORKER LAB BLOOD ORDERABLES Final Resu lt Performing Organization Address City/[facility]/ZIP Co de Phone Number [facility] * (ABNORMAL) METRO IRON AND TIBC (08/16/2024 10:09 AM EDT) TBH IRON 15.0(L) 50.0 - 170.0 ug/dL TBH TBH TOTAL IRON BINDING CAPACITY 455.0(H) 250.0 - 450.0 ug/dL TBH TBH PERCENT IRON SATURATION 3.3 % TBH 08/16/2024 10:0 9 AM EDT 08/16/2024 10:13 AM EDT Narrative CLINISYNC - 08/16/2024 11:02 AM EDT Venessa Puente NP CLINISYNC Final Result Performing Organization Address [facility] Co de Phone Number [facility] * (ABNORMAL) [facility] FERRITIN (08/16/2024 10:09 AM EDT) FERRITIN 3.0(L) 8.0 - 252.0 ng/mL TBH 08/16/2024 10:0 9 AM EDT 08/16/2024 10:13 AM EDT Narrative CLINISYNC - 08/16/2024 12:13 PM EDT Venessa Puente EMERGENCY WORKER CLINISYNC Final Result Performing Organization Address City/[facility] Co de Phone Number [facility] * TBH INSULIN (08/04/2024 9:14 AM EDT) INSULIN 3.7 2.6 - 24.9 uIU/mL TBH Comment: Performed at: [address] [id number] Associate Director Of Biostatistics: Kwadwo Toledo PhD, Phone: [phone] 08/04/2024 9:14 AM EDT 08/04/2024 9:16 AM EDT Narrative CLINISYNC - 08/05/2024 7:08 AM EDT Venessa Puente EMERGENCY WORKER CLINISYNC Final Result [facility]INIS[facility]AZ TB * MLR HEMOGLOBIN A1C (08/04/2024 9:14 AM EDT) GLYCOHEMOGLOBIN A1C 5.4 4.5 - 6.2 % TB Comment: ADA RECOMMENDED LIMIT 4.0 - 6.0 ADA THERAPEUTIC TARGET < 7.0 ACTION SUGGESTED > 7.0 ESTIMATED AVERAGE GLUCOSE 108 mg/dL TB 08/04/2024 9:14 AM EDT 08/04/2024 9:16 AM EDT Narrative CLINISYNC - 08/04/2024 9:56 AM EDT Venessa Puente NP CLINISYNC Final Result Performing Organization Address [facility] de Phone Number [facility] * [facility] CMP (CMP) (FOR REMOTE [facility] USE) (08/04/2024 9:14 AM EDT) SODIUM 139 136 - 145 mmol/L TBH POTASSIUM 4.1 3.5 - 5.1 mmol/L TBH CHLORIDE 102 98 - 107 mmol/L TBH CARBON DIOXIDE 27.1 21.0 - 32.0 mmol/L TBH ANION GAP 14.0 TB GLUCOSE 88 74 - 106 mg/dL TB BLOOD UREA NITROGEN 14.0 7.0 - 18.0 mg/dL TBH CREATININE 0.60 0.55 - 1.02 mg/dL TBH TBH EGFR-AF FILIPINO >60 >=60 mL/min/1. 73m 2 TBH TBH EGFR-NON AF FILIPINO >60 >=60 mL/min/1. 73m 2 TB BUN CREATININE RATIO 23.3 TBH CALCIUM 8.9 8.5 - 10.1 mg/dL TBH BILIRUBIN TOTAL 0.4 0.2 - 1.0 mg/dL TB ASPARTATE AMINO TRANSFERASE 19 15 - 37 U/L TB ALANINE AMINOTRANSFERASE 20 14 - 59 U/L TBH ALKALINE PHOSPHATASE 52 46 - 116 U/L TBH TOTAL PROTEIN 7.6 6.4 - 8.2 g/dL TBH ALBUMIN LEVEL 4.0 3.4 - 5.0 g/dL TBH GLOBULIN 3.6 g/dL TBH ALBUMIN GLOBULIN RATIO 1.1 TBH 08/04/2024 9:14 AM EDT 08/04/2024 9:16 AM EDT Narrative CLINISYNC - 08/04/2024 10:05 AM EDT Venessa Puente NP CLINISYNC Final Result [facility] * ALL THYROXINE (T4) FREE (08/04/2024 9:14 AM EDT) FREE T4 0.93 0.76 - 1.46 ng/dL TB 08/04/2024 9:14 AM EDT 08/04/2024 9:16 AM EDT Narrative CLINISYNC - 08/04/2024 10:51 AM EDT Venessa Puente NP CLINISYNC Final Result Performing Organization Address [facility]/ZIP Co de Phone Number [facility] * ALL THYROID STIM HORMONE (08/04/2024 9:14 AM EDT) THYROID STIMULATING HORMONE 1.398 0.358 - 3.740 uIU/mL TB 08/04/2024 9:14 AM EDT 08/04/2024 9:16 AM EDT Narrative CLINISYNC - 08/04/2024 10:05 AM EDT Venessa Puente NP CLINISYNC Final Result Performing Organization Address [facility] Co de Phone Number CLINISYNC TB * (ABNORMAL) ALL LIPID PROFILE (FASTING) [...] us Venessa Puente NP [facility] ([facility]) ALL CBC WITH AUTO DIFF (08/04/2024 9:14 AM EDT) TBH WBC 4.7 4.0 - 11.0 10 3/uL TBH TBH RBC 4.89 4.20 - 5.40 10 6/uL TBH TBH HGB 10.0(L) 12.0 - 16.0 g/dL TBH TBH HCT 33.3(L) 36.0 - 48.0 % TBH TBH MCV 68.1(L) 81.0 - 99.0 fL TBH TB MCH 20.4(L) 26.7 - 34.0 pg TBH [...] Narrative CLINISYNC - 08/04/2024 9:22 AM EDT Venessa Puente NP [facility]NC Final Result [facility] * TBH UA (CLEAN/CATCH) MICROSCOPIC IF INDICATE [...] Narrative CLINISYNC - 08/04/2024 9:48 AM EDT Venessa Puente NP CLINISYNC Final Result [facility]IN[facility]NC [facility] from Last 3 Months Insurance BCBS Care Teams Blacksmith Hammer Operator Relationship Specialty Start Date End Date Harish Andres MD [address] [place] [address] PCP - General Family Medicine 10/16/23 Bina Hilton NP [address] [place] [address] Nurse Practitioner Family Medicine 10/16/23
[2024-10-08 11:07] LABS: Hematocrit 35.3 % (36.0-48.0); Hemoglobin 10.6 g/dL (12.0-16.0); Immature Granulocytes Abs Auto 0.01 10^3/uL (0.00-0.03); Immature Granulocytes Pct Auto 0.2 % (0.0-0.5); Lymphocytes Absolute Auto 1.7 10^3/uL (1.2-3.8); Mean Corpuscular HGB Conc 30.0 g/dL (29.9-35.2); Mean Corpuscular Hemoglobin 21.8 pg (26.7-34.0); Mean Corpuscular Volume 72.5 fL (81.0-99.0); Platelet Count 242 10^3/uL (150-450); Red Blood Count 4.87 10^6/uL (4.20-5.40); White Blood Count 4.6 10^3/uL (4.0-11.0)
[2024-10-08 11:44] LABS: Iron 30.0 ug/dL (50.0-170.0); Percent Iron Saturation 7.1 %; Total Iron Binding Capacity 420.0 ug/dL (250.0-450.0)
[2024-10-08 12:32] LABS: Ferritin 6.0 ng/mL (8.0-252.0)
[2024-10-09 04:07] LABS: Transferrin 336 mg/dL (192-364)
== END 2024-10-08 09:49 | disposition home or self-care (01) ==
LOC: LAB 09:52
PROVIDERS: PCP Nurse Practitioner; Visit Provider Nurse Practitioner
DX: D50.9 Iron deficiency anemia, unspecified (principal)
CPT/HCPCS: 36415; 82728; 83540; 83550; 84466; 85025

== ENCOUNTER 2024-11-30 09:39 | Outpatient (OUT) | payer BC, SELFPAY ==
[2024-11-30 11:09] LABS: Iron 22.0 ug/dL (50.0-170.0); Percent Iron Saturation 5.3 %; Total Iron Binding Capacity 414.0 ug/dL (250.0-450.0)
[2024-11-30 12:14] LABS: Ferritin 6.0 ng/mL (8.0-252.0)
[2024-11-30 12:17] LABS: Hematocrit 34.2 % (36.0-48.0); Hemoglobin 10.9 g/dL (12.0-16.0); Immature Granulocytes Abs Auto 0.01 10^3/uL (0.00-0.03); Immature Granulocytes Pct Auto 0.2 % (0.0-0.5); Lymphocytes Absolute Auto 1.5 10^3/uL (1.2-3.8); Mean Corpuscular HGB Conc 31.9 g/dL (29.9-35.2); Mean Corpuscular Hemoglobin 23.2 pg (26.7-34.0); Mean Corpuscular Volume 72.9 fL (81.0-99.0); Platelet Count 225 10^3/uL (150-450); Red Blood Count 4.69 10^6/uL (4.20-5.40); White Blood Count 4.4 10^3/uL (4.0-11.0)
[2024-12-01 09:09] LABS: Transferrin 317 mg/dL (192-364)
== END 2024-11-30 09:40 | disposition home or self-care (01) ==
LOC: LAB 09:41
PROVIDERS: PCP Nurse Practitioner; Visit Provider Nurse Practitioner
DX: D50.9 Iron deficiency anemia, unspecified (principal)
CPT/HCPCS: 36415; 82728; 83540; 83550; 84466; 85025

== ENCOUNTER 2025-01-11 09:41 | Outpatient (RCR) | payer BC, SELFPAY ==
[2025-01-11 11:09] LABS: Hematocrit 35.5 % (36.0-48.0); Hemoglobin 11.0 g/dL (12.0-16.0); Immature Granulocytes Abs Auto 0.01 10^3/uL (0.00-0.03); Immature Granulocytes Pct Auto 0.2 % (0.0-0.5); Lymphocytes Absolute Auto 1.1 10^3/uL (1.2-3.8); Mean Corpuscular HGB Conc 31.0 g/dL (29.9-35.2); Mean Corpuscular Hemoglobin 23.3 pg (26.7-34.0); Mean Corpuscular Volume 75.1 fL (81.0-99.0); Platelet Count 241 10^3/uL (150-450); Red Blood Count 4.73 10^6/uL (4.20-5.40); White Blood Count 6.0 10^3/uL (4.0-11.0)
[2025-01-11 12:02] LABS: Iron 31.0 ug/dL (50.0-170.0); Percent Iron Saturation 7.3 %; Total Iron Binding Capacity 423.0 ug/dL (250.0-450.0)
[2025-01-11 12:16] LABS: Ferritin 8.0 ng/mL (8.0-252.0)
== END 2025-01-16 23:59 | disposition home or self-care (01) ==
LOC: HEMC 09:41
PROVIDERS: PCP Nurse Practitioner; Visit Provider Internal Medicine Hematology & Oncology
DX: D50.9 Iron deficiency anemia, unspecified (principal); K90.9 Intestinal malabsorption, unspecified; N92.0 Excessive and frequent menstruation with regular cycle; R42 Dizziness and giddiness; R11.0 Nausea; R53.83 Other fatigue
CPT/HCPCS: 36415; 82728; 83540; 83550; 85025; G0463

== ENCOUNTER 2025-02-04 09:17 | Outpatient (RCR) | payer BC, SELFPAY ==
[2025-01-28 09:25] VITALS: PULSE 88; TEMP 36.3; O2SAT 99
[2025-02-04 10:06] VITALS: BP 104/69; PULSE 71; TEMP 36.8; O2SAT 98
== END 2025-02-16 23:59 | disposition home or self-care (01) ==
LOC: HEMC 09:17
PROVIDERS: PCP Nurse Practitioner; Visit Provider Internal Medicine Hematology & Oncology
DX: D50.9 Iron deficiency anemia, unspecified (principal); K90.9 Intestinal malabsorption, unspecified
CPT/HCPCS: 96365; Q0138

== ENCOUNTER 2025-02-08 20:24 | Outpatient (REF) | payer BC, SELFPAY ==
--- OUTSIDE RECORDS SUMMARY | 2025-01-25 07:36 | XMS_ITS | Continuity of Care Document ---
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 Role Phone NO FAMILY, PHYSICIAN Primary Care Provider Venessa Andrade PHP ARCHITECT-C Attending Provider Venessa Puente PHP ARCHITECT-C Primary Care Provider [phone] Kassandra Middleton MD Attending Provider [phone] Francy Julian DO Attending Provider Francy Julian DO Other Provider Care Teams Patient Care Team Team Status: Active Member Role/Relationship Status Dates Venessa Puente PHP ARCHITECT-C Primary Care Provider Active Visit Care Team Team Status: Active Member Role/Relationship Status Dates PHYSICIAN NO FAMILY Primary Care Provider Active Start: November 30, 2024 Venessa Puente PHP ARCHITECT-CAttending ProviderActiveStart: November 30, 2024 Visit Care Team Team Status: Inactive Member Role/Relationship Status Dates Venessa Puente PHP ARCHITECT-C Primary Care Provider Active Start: December 27, 2024 End: December 27, 2024Venessa Puente PHP ARCHITECT-CAttending ProviderActiveStart: December 27, 2024 End: December 27, 2024 Visit Care Team Team Status: Active Member Role/Relationship Status Dates Venessa Puente PHP ARCHITECT-C Primary Care Provider Active Start: January 11, 2025 Nik Schrader ProviderActiveStart: January 11, 2025 Patient Care Team Team Status: Active Member Role/Relationship Status Dates Francy Julian DO Attending Provider Active St art: January 25, 2025 Francy Julian , DOOther ProviderActiveStart: January 25, 2025 Venessa Puente , [facility] Care ProviderActiveStart: January 25, 2025 Chief Complaint and Reason for Visit Chief Complaint Admit Date 2M December 27, 2024 8:40am IRON DEF ANEMIA January 25, 2025 8 :49am Reason for Visit Admit Date Dizziness and giddiness December 27 8:40am ROHITH (generalized anxiety disorder) Novem 2024 8:40am CARRIE (iron deficiency anemia) December 272024 8:40am Allergies, Adverse Reactions, Alerts Allergen Type Severity Reaction Last Updated Verified Status penicillin V Allergy Unknown rash January 14, 2025 8:30am Yes Active Social History Smoking Status Status Start Date End Date Date of Observa tion Never smoked tobacco (finding) January 25, 2025 9:27am Observation Status Observation Response Date of Response Legal Sex Female (finding) Sex Assigned At BirthFemaleDecember 1994 Family History Relationship Condition Age at Onset Recorded Date/T shayla mother Hypertension Unknown fatherHypertensionUnknown Problems Active Problems Problem Diagnosis/Recorded Date Onset Date Stat us ROHITH (generalized anxiety disorder) November 06 7:03am Unknown Active Dizziness and giddiness November 06, 2024 7:03am Un known Active Hypoglycemia November 06, 2024 7:03am Unknown Active CARRIE (iron deficiency anemia) November 06, 2024 7:04 am Unknown Active Inactive/Resolved Problems Problem Diagnosis/Recorded Date Onset Date Stat us Diarrhea August 29, 2023 9:42am Unknown Resol mumtaz Adverse drug effect August 29, 2023 9:42am Unknown Resolved Nausea and vomiting August 29, 2023 9:42am Unknown Resolved Medications Medication Status Dose Units Route Directions Qty Days Refills S tart Date Stop Date End Date Reason(s) Instructions Adherence Ferrous Sulfate 325 mg (65 m g iron) tablet,delayed release (DR/EC) Discontinued 325 MG PO Twice daily 60 1September 2024 7:22amOctober 2024 8:17pmIron deficiency anemia Iron deficiency anemia, unspecifiedCitalopram 10 mg voapvoDedkpsdtkyse94ZOPW Onjcb924Uurazsb 8th, 2025 8:16pmNovember 2024 9:11amGeneralized anxiety disorder Generalized anxiety disorderFerrous Sulfate 325 mg (65 mg iron) tablet,delayed release (DR/EC)Ozkxmzozgend415FDWVViywf rhsmg316Mssgdlu 8th, 2025 8:17pmNov2024 9:11amIron deficiency anemia Iron deficiency anemia, unspecifiedFerrous Sulfate 325 mg (65 mg iron) tablet,delayed release (DR/EC)Fvmzaa597TZHSTtpiv gvoyw3231DnuuqdusDecember 27, 2024 1:59pmIron deficiency anemia Iron deficiency anemia, unspecifiedComplies with drug therapyOndansetron Hcl 4 mg dcuwthTemkdxnrnony6HEHSMfzjq 8 hours as needed for nausea and oxsjlfhp1071 August 28, 2023 11:00pmOctober 2024 4:26amCitalopram 10 mg jxowyqFflero21 LTPMEmwfx086Faeoquqt 10th, 2025 9:11amGeneralized anxiety disorder Generalized anxiety disorderComplies with drug therapyFerrous Sulfate 325 mg (65 mg iron) tablet,delayed release (DR/EC)Dhbjolfyowsh860XZGUDobwd ufwlo8994 December 27, 2024 9:11amNovember 2024 1:59pmIron deficiency anemia Iron deficiency anemia, unspecifiedCitalopram 10 mg qmkgpqQdwkvuwlyowe57HKGV DailySept2024 11:00pmOct2024 8:17pmFerrous Sulfate 325 mg (65 mg iron) tablet,delayed release (DR/EC)DiscontinuedMGPOSept2024 11:00pmSept2024 7:22amCopper (Paragard T 380a) 380 square mm intrauterine pkenshXvkwir1TQLTCUVPSNRCBYMDIieqtfuro 19th, 2025 11:00pmUnknown Relevant Diagnostic Tests and/or Laboratory Data Laboratory Results Test Collection Date/Time Result Date/Time Result Interpretation Reference Range Result Comment Performing Site Transferrin November 30, 2024 8:58am November 30, 2024 8 :58am 317 mg/dL 192-364Performed at: - [facility] [address] [id number] Director: Kwadwo Toledo PhD, Phone: [phone] 14th, 2025 8:58amOctober 2024 8:58am6.0 ng/mLBelow low normal8.0-252.0 Basophils # (Auto)November 30, 2024 8:58amOctober 2024 8:58am0.0 10 3/uL 0.0-0.1Iron SaturationOctober 2024 8:58amOctober 2024 8:58am5.3 % FerritinNovember 2024 10:59amNovember 2024 10:59am8.0 ng/mL8.0-252.0 Iron SaturationNov2024 10:59amNovember 2024 10:59am7.3 % Basophils # (Auto)January 11, 2025 10:59amNovember 2024 10:59am0.1 10 3/uL0.0-0.1Basophils (%) (Auto)November 30, 2024 8:58amOctober 2024 8:58am0.9 %0.2-2.0Iron LevelOctober 2024 8:58amOctober 2024 8:58am 22.0 ug/dLBelow low muaqdl45.0-170.0Iron LevelNov2024 10:59am January 11, 2025 10:59am31.0 ug/dLBelow low jfmixh51.0-170.0Basophils (%) (Auto)January 11, 2025 10:59amNovember 2024 10:59am0.8 %0.2-2.0 Eosinophils # (Auto)November 30, 2024 8:58amOctober 2024 8:58am0.1 10 3/uL0.0-0.7Total Iron Binding CapacityOctober 2024 8:58amOctober 2024 8:92bq898.0 ug/dL250.0-450.0Total Iron Binding CapacityNov2024 10:59amNovember 2024 10:85ei798.0 ug/dL250.0-450.0Eosinophils # (Auto) January 11, 2025 10:59amNovember 2024 10:59am0.1 10 3/uL0.0-0.7 Eosinophils (%) (Auto)November 30, 2024 8:58amOctober 2024 8:58am2.1 % 0.9-7.0Eosinophils (%) (Auto)January 11, 2025 10:59amNovember 2024 10:59am1.3 %0.9-7.0HematocritOct2024 8:58amOctober 2024 8:58am 34.2 %Below low afknlg58.0-48.0HematocritNov2024 10:59amNovember 2024 10:59am35.5 %Below low oizgop08.0-48.0HemoglobinNovember 30, 2024 8:58amOctober 2024 8:58am10.9 g/dLBelow low adzrpz94.0-16.0Hemoglobin January 11, 2025 10:59amNovember 2024 10:59am11.0 g/dLBelow low normal 12.0-16.0Immature Granulocyte # (Auto)November 30, 2024 8:58amOctober 2024 8:58am0.01 10 3/uL0.00-0.03Immature Granulocyte # (Auto)January 11, 2025 10:59amNovember 2024 10:59am0.01 10 3/uL0.00-0.03Immature Granulocyte % (Auto)November 30, 2024 8:58amOctober 2024 8:58am0.2 %0.0-0.5Immature Granulocyte % (Auto)January 11, 2025 10:59amNovember 2024 10:59am0.2 % 0.0-0.5Lymphocytes # (Auto)November 30, 2024 8:58amOctober 2024 8:58am1.5 10 3/uL1.2-3.8Lymphocytes # (Auto)January 11, 2025 10:59amNovember 2024 10:59am1.1 10 3/uLBelow low normal1.2-3.8Lymphocytes (%) (Auto)November 30, 2024 8:58amOctober 2024 8:58am34.8 %20.5-60.0Lymphocytes (%) (Auto) January 11, 2025 10:59amNovember 2024 10:59am17.5 %Below low normal 20.5-60.0Mean Corpuscular HemoglobinOctober 2024 8:58amOctober 2024 8:58am23.2 pgBelow low ruussw83.7-34.0Mean Corpuscular HemoglobinNovember 2024 10:59amNovember 2024 10:59am23.3 pgBelow low xdjzah04.7-34.0Mean Corpuscular Hemoglobin [facility] 2024 8:58amOctober 2024 8:58am 31.9 g/dL29.9-35.2Mean Corpuscular Hemoglobin ConcentNov2024 10:59am January 11, 2025 10:59am31.0 g/dL29.9-35.2Mean Corpuscular VolumeOctober 2024 8:58amOctober 2024 8:58am72.9 fLBelow low ecwcoi14.0-99.0Mean Corpuscular VolumeNovember 2024 10:59amNovember 2024 10:59am75.1 fL Below low pkaxxk59.0-99.0Monocytes # (Auto)November 30, 2024 8:58amOctober 2024 8:58am0.5 10 3/uL0.3-0.8Monocytes # (Auto)January 11, 2025 10:59am January 11, 2025 10:59am0.6 10 3/uL0.3-0.8Monocytes (%) (Auto)November 30, 2024 8:58amOctober 2024 8:58am10.5 %1.7-12.0Monocytes (%) (Auto)January 11, 2025 10:59amNovember 2024 10:59am9.7 %1.7-12.0Mean Platelet Volume November 30, 2024 8:58amOctober 2024 8:58am12.0 fL9.5-13.5Mean Platelet VolumeJanuary 11, 2025 10:59amNovember 2024 10:59am11.5 fL9.5-13.5 Neutrophils # (Auto)November 30, 2024 8:58amOctober 2024 8:58am2.3 10 3/uL1.4-6.5Neutrophils # (Auto)January 11, 2025 10:59amNovember 2024 10:59am4.2 10 3/uL1.4-6.5Neutrophils (%) (Auto)November 30, 2024 8:58amOctober 2024 8:58am51.5 %43.0-75.0Neutrophils (%) (Auto)January 11, 2025 10:59amNovember 2024 10:59am70.5 %43.0-75.0Platelet CountOct2024 8:58amOctober 2024 8:16rm102 10 3/lM553-521Kwrjqzbw CountJanuary 11, 2025 10:59amNovember 2024 10:37hn385 10 3/lV970-152Yfw Blood Count November 30, 2024 8:58amOctober 2024 8:58am4.69 10 6/uL4.20-5.40Red Blood CountJanuary 11, 2025 10:59amNovember 2024 10:59am4.73 10 6/uL4.20-5.40 Red Cell Distribution WidthOct2024 8:58amOctober 2024 8:58am 18.2 %Above high .0-15.0Red Cell Distribution WidthJanuary 11, 2025 10:59amNovember 2024 10:59am17.2 %Above high qjydgc39.0-15.0Corrected White Blood CountOctober 2024 8:58amOctober 2024 8:58am4.4 10 3/uL 4.0-11.0Corrected White Blood CountJanuary 11, 2025 10:59amNovember 2024 10:59am6.0 10 3/uL4.0-11.0 Vital Signs Vital Reading Result Reference Range Collection Date/Time Height 66 [in_i] December 27, 2024 8:79rzKpsfrf75.58 kgDecember 27, 2024 8:45amBody Hvamljceutf76.5 [degF]97.6-99.0December 27, 2024 8:45amHeart Rate81 /jrm22-418 December 27, 2024 8:45amRespiratory rate18 /znn61-06WsnkcmqkDecember 27, 2024 8:45am Oxygen saturation by Pulse %95-100December 27, 2024 8:45amBP Lichcyvz818 mm[Hg]100-140December 27, 2024 8:45amBP Mmozzjhww82 mm[Hg]60-100 December 27, 2024 8:45amBMI (Body Mass Index)22.9 kg/y4YvfnbmxxDecember 27, 2024 8:81eoTfhqhl64 [in_i]January 25, 2025 9:56kjUvfvqg16.50 kgDeceer 2024 9:24amHeart Rate78 /beb59-979BgmlbyniJanuary 25, 2025 11:40amRespiratory rate16 /min 12-24ce2024 11:40amOxygen saturation by Pulse iyfqftll239 %95-100 January 25, 2025 11:40amBP Rbjeueoj642 mm[Hg]100-140Dece2024 11:40am BP Qkwelexiv80 mm[Hg]60-100Dece2024 11:40am Advance Directives Advance Directive Response Recorded Date/ Time Advance Directives No August 28 9:34am Insurance Providers Guarantor Julia Choudhury Address [address] [place] [address] [place] [address]Ksqslao Info.Home Phone: Payer Group Member ID Coverage Type Subscriber Relationship to Subscriber Effective Date Expiration Date Caitlyn JIMENEZ Id: [id number] Weiker , M Id: [id number] [address] [place] [address] Home Phone: [employer] [facility] [id number] Hasselbach , M Id: [id number] [address] [place] [address] Home Phone: Self Encounters Encounter Location(s) Arrival/Admit Date Discharge/Departure Date Discharge/Departure Disposition Provider(s) Non-patient / [facility] ctober 2024 9:58am Venessa Puente NP-CDeparted Physician/Provider Office Visit-[facility] 8:40amNovember 2024 9:08amDischarged to home care or self care (routine discharge)Venessa Puente NP-CNon-patient / Pxx[facility]hrpzh-[facility] 2024 10:59amAbecky Middleton MDNon-patient / [facility] 2024 8:49am Francy Julian DO Recent Diagnosis Onset Date Admit Date Dizziness and giddiness Unknown December 27, 2024 8:40am ROHITH (generalized anxiety disorder) Unknown December 27, 2024 8:40am CARRIE (iron deficiency anemia) Unknown Dec 8:40am Assessments Diagnosis Onset Date Resolution Status Admit Date Dizziness and giddiness acuteDecember 27, 2024 8:40amGAD (generalized anxiety disorder)acuteDecember 27, 2024 8:40amIDA (iron deficiency anemia)acuteDecember 27, 2024 8:40am Plan of Treatment [facility] 9:11amcurrent medication: citalopram at 10mg daily ROHITH 7=3 (12/27/24) resolved is on ferrous sulfate BID most recent labs: 11/30/24: Hgb 10.9, and Iron 22, ferritin 6 (08/11 Hgb 10, Iron 15) has been referred to Hematology and gastro appts with both in December as well as has appt with EDUCATION TRAINER as well I have encouraged her to start taking her ferrous sulfate again at BID, (she had stopped about 2 weeks ago since her count wasnt changing much) DD: CARRIE, menstrual loss, GI bleeding, thalaseemia Future Tests Future scheduled test information is unavailable Pending Tests Pending diagnostic test information is unavailable Future Visits Future appointment information is unavailable Future Procedures Procedure Name Ordered Date Scheduled Date Discharge Order January 25, 2025 11:08am Decem ambar 2024 11:08am Future Medications Future medication information is unavailable Patient Instructions Instruction Admit Date [facility] Hemorrhoids Discha rge Instructions Know your MedsDecember 2024 8:49am Hospital Discharge Instructions Additional Instructions DISCHARGE INSTRUCTIONS FOR UPPER ENDOSCOPY WHAT TO EXPECT: - You may feel full, gassy or cramping after your procedure. In some cases, this may be from a few hours to a day. Walking may help relieve the discomfort. - Your throat may feel sore today from the scope that the doctor passed through your throat to visualize your stomach. Take a throat lozenge or suck on ice to ease the discomfort. - You may notice some streaks of blood in your sputum if the doctor has taken a biopsy. - You should begin to recover from anesthesia within 1 hour of the procedure, however may feel groggy for the next 24 hours. DO's AND DON'Ts: - Call your doctor right away if you have a hard abdomen, severe pain, vomiting or if you cough up large amounts of blood. - Call your doctor if you develop any rashes, hives or difficulty breathing. - If you take 81 mg aspirin for your heart it is safe to resume this medication. - If you take other blood thinner medications your doctor will instruct you when these can safely be resumed. - Do NOT drive for 24 hours. - Do NOT operate machinery such as power tools, lawn mowers, snow blowers, sewing machines, etc. for 24 hours. - Avoid alcoholic beverages and drugs for allergies, nerves, or sleep. - Do NOT stay alone. Do NOT leave your child unattended. - Do NOT make important personal or business decisions or sign any legal documents. - Eat solid foods and drink liquids in smaller amounts than usual until normal appetite returns. If you should experience an upset stomach, liquids high in sugar content (soda, Asa-Aid, non-acid juices) are recommended. - Do NOT smoke. - Do take it easy today. You need not stay in bed, but avoid strenuous activities such as jogging or working out. DISCHARGE INSTRUCTIONS FOR COLONOSCOPY WHAT TO EXPECT: - You may feel full, gassy or cramping after your procedure. In some cases, this may be from a few hours to a day. Walking may help relieve the discomfort. - If you have polyp(s) removed you may note some minor bloody discharge after your first bowel movements. - You should begin to recover from anesthesia within 1 hour of the procedure, however may feel groggy for the next 24 hours. DO's AND DON'Ts: - Call your doctor right away if you have a hard abdomen, sever pain, are passing lots of bright red blood or clots. - Call your doctor if you develop any rashes, hives or difficulty breathing. - Let your doctor know if you have not had a bowel movement by 3 days after your procedure. - If you take 81 mg aspirin for your heart it is safe to resume this medication. - If you take other blood thinner medications your doctor will instruct you when these can safely be resumed. - Do NOT drive for 24 hours. - Do NOT operate machinery such as power tools, lawn mowers, snow blowers, sewing machines, etc. for 24 hours. - Avoid alcoholic beverages and drugs for allergies, nerves, or sleep. - Do NOT stay alone. Do NOT leave your child unattended. - Do NOT make important personal or business decisions or sign any legal documents. - Eat solid foods and drink liquids in smaller amounts than usual until normal appetite returns. If you should experience an upset stomach, liquids high in sugar content (soda, Asa-Aid, non-acid juices) are recommended. - You can resume normal activities tomorrow. FOLLOW UP & RECOMMENDATIONS: -Please call the office and make a follow up appointment to see me if symptoms persist -Notify the doctor if you have any problems. -Repeat colonoscopy at 43 years of age for screening purposes -Follow up with PCP. - Office number [phone].
--- OUTSIDE RECORDS SUMMARY | 2025-02-08 13:00 | XMS_ITS | Encounter Summary ---
Author Organization [facility] Address [address] [place] [address] Care Team Providers Care Textile Converter Name Role Phone Harish Andres MD Primary Care Provider [phone] Bina Hliton NP Unavailable [phone] Reason for Visit * ReasonCommentsWell Women Visit Encounter Details DateTypeDepartmentCare Team (Latest Contact Info)Lgjvfuurbwg97/23/2025 1:00 PM ESTProcedure Visit [facility] [address] [place], [id number] Murray Powell DO [address] [place] [id number] Well woman exam with routine gynecological exam Social History Tobacco UseTypesPacks/DayYears UsedDateSmoking Tobacco: NeverSmokeless Tobacco: NeverAlcohol UseStandard Drinks/WeekCommentsNever0 (1 standard drink = 0.6 oz pure alcohol)caffeine: 1-2 cups per [id number] Health LiteracyAnswerDate Recorded How often do you need to have someone help you when you read instructions, pamphlets, or other written material from your doctor or pharmacy?Never 10/29/2023Social Connection and Isolation PanelAnswerDate RecordedIn a typical week, how many times do you talk on the phone with family, friends, or neighbors?Once a week10/29/2023Frequency of Social Gatherings with Friends and FamilyNot on file10/29/2023How often do you attend faith or yarsanism services? Never10/29/2023o you belong to any clubs or organizations such as faith groups, unions, fraternal or athletic groups, or school groups?No10/29/2023How often do you attend meetings of the clubs or organizations you belong to?Never 10/29/2023re you , , , , never , or living with a partner?Djrgxrx7910/29/2023UDIT-CAnswerDate RecordedQ1: How often do you have a drink containing alcohol?Never10/29/2023Q2: How many drinks containing alcohol do you have on a typical day when you are drinking?Patient does not drink10/29/2023Q3: How often do you have six or more drinks on one occasion?Never10/29/2023Overall Financial Resource Strain (CARDIA)AnswerDate RecordedHow hard is it for you to pay for the very basics like food, housing, medical care, and heating?Not hard at all10/29/2023HQ-2AnswerDate Recorded Patient Health Questionnaire-2 [id number] [place] of Occupational Health - Occupational Stress QuestionnaireAnswerDate RecordedDo you feel stress - tense, restless, nervous, or anxious, or unable to sleep at night because your mind is troubled all the time - these days?Only a qgkvka9110/29/2023Exercise Vital SignAnswerDate RecordedOn average, how many days per week do you engage in moderate to strenuous exercise (like a brisk walk)?2 days10/29/2023On average, how many minutes do you engage in exercise at this level?30 min10/29/2023Hunger Vital SignAnswerDate RecordedWithin the past 12 months, you worried that your food would run out before you got the money to buymore.Never true10/29/2023 Within the past 12 months, the food you bought just didn't last and you didn't have money to get more.Never true10/29/2023RAPARE - TransportationAnswerDate RecordedIn the past 12 months, has lack of transportation kept you from medical appointments or from getting medications?No10/29/2023In the past 12 months, has lack of transportation kept you from meetings, work, or from getting things needed for daily living?No10/29/2023Housing Stability Vital SignAnswerDate RecordedIn the last 12 months, was there a time when you were not able to pay the mortgage or rent on time?No10/29/2023Number of Times Moved in the Last Year Not on file10/29/2023t any time in the past 12 months, were you homeless or living in a alf (including now)?No10/29/2023CommentsNoSex and Gender InformationValueDate RecordedSex Assigned at BirthNot on fileLegal SexFemale 05/01/2022 6:39 PM EDTGender IdentityNot on fileSexual OrientationNot on file documented as of this encounter Last Filed Vital Signs Vital SignReadingTime TakenCommentsBlood Gdavssxm557/6402/08/2025 1:05 PM EST Pulse--Temperature--Respiratory Rate--Oxygen Saturation--Inhaled Oxygen Concentration--Edbwwr95.9 kg (140 lb 12.8 oz)02/08/2025 1:05 PM ESTHeight--Body Mass Index22.7310/30/2023 8:37 AM EDTdocumented in this encounter Progress Notes * Zelda Soto LPN - 02/08/2025 1:00 PM EST Reason for Appointment: Patient ID: Unique Santos is a 30 y.o. female who presents for Well Women Visit Patient presents today for Annual Exam. MEDICATIONS Current Outpatient Medications Medication Instructions citalopram (CELEXA) 10 mg, Oral, Daily ferrous sulfate 325 mg, 2 times daily with meals PARAGARD INTRAUTERINE COPPER IU 1 Intra Uterine Device, Once ALLERGIES Allergies Allergen Reactions Penicillin V Other Reaction(s): rash Penicillins Rash PROBLEMS Active Ambulatory Problems Diagnosis Date Noted ROHITH (generalized anxiety disorder) 02/18/2023 Wellness examination 02/18/2023 Dizziness and giddiness 07/27/2024 Hypoglycemia 07/27/2024 Iron deficiency anemia 08/09/2024 Resolved Ambulatory Problems Diagnosis Date Noted CARRIE (iron deficiency anemia) 08/16/2024 Past Medical History: Diagnosis Date Anemia Anxiety and depression Asthma (HCC) HISTORY PAST MEDICAL HISTORY SOCIAL HISTORY Past Medical History: Diagnosis Date Anemia Anxiety and depression Hx of ROHITH with panic attacks. Used to be on Celexa - ran out of it, just started using it again oneweek ago. While she was on Celexa - her anxiety/panic disorder was well controlled and she was doing well on it. She was being prescribed Celexa and Xanax by Dr Powell [facility] ([facility]) Social History Tobacco Use Smoking status: Never Smokeless tobacco: Never Vaping Use Vaping status: Never Used Substance Use Topics Alcohol use: Never Comment: caffeine: 1-2 cups per day Drug use: Never FAMILY HISTORY Family History Problem Relation Name Age of Onset Hypertension Mother Hypertension Father Diabetes Maternal Grandmother Cancer Maternal Grandmother Coronary artery disease Other Lung cancer Other SURGICAL HISTORY Past Surgical History: Procedure Laterality Date INTRAUTERINE DEVICE INSERTION 08/06/2021 REVIEW OF SYSTEMS Review of Systems: Review of Systems Constitutional: Negative. HENT: Negative. Eyes: Negative. Respiratory: Negative. Cardiovascular: Negative. Gastrointestinal: Negative. Genitourinary: Negative. Musculoskeletal: Negative. Skin: Negative. Neurological: Negative. All other systems reviewed and are negative. Hematological: Negative. Endocrine: Negative. Allergic/Immunologic: Negative. OBJECTIVE Objective: Physical Exam Constitutional: Appearance: Normal appearance. She is well-developed. Genitourinary: Vulva normal. Breasts: Breasts are soft. Right: Normal. Left: Normal. Cardiovascular: Rate and Rhythm: Normal rate and regular rhythm. Pulmonary: Effort: Pulmonary effort is normal. Breath sounds: Normal breath sounds. Abdominal: General: Bowel sounds are normal. There is no distension. Palpations: Abdomen is soft. Tenderness: There is no abdominal tenderness. There is no guarding or rebound. Musculoskeletal: General: No swelling. Normal range of motion. Right lower leg: No edema. Left lower leg: No edema. Neurological: Mental Status: She is alert and oriented to person, place, and time. Skin: General: Skin is warm and dry. Psychiatric: Mood and Affect: Mood normal. Behavior: Behavior normal. Vitals and nursing note reviewed. Exam conducted with a wet plant operator present. Vitals: Estimated body mass index is 22.73 kg/m?? as calculated from the following: Height as of 10/30/23: 5' 6 . Weight as of this encounter: 140 lb 12.8 oz. BP: 102/64 Patient's last menstrual period was 01/31/2025. ASSESSMENT & PLAN ICD-10-CM 1. Well woman exam with routine gynecological exam Z01.419 Pap Smear HPV DNA probe, amplified Orders Placed This Encounter Procedures HPV DNA probe, amplified Annual Wellness Exam: Patient presents today for routine annual exam. Patient states she has no current complaints. Patients vitals were reviewed and within normal limits. Growth and development is noted to be appropriate for age. Menstrual history is noted to be regular with no concerns reported. No mental health concerns was expressed. Pap Smear: Speculum was inserted into the vagina and pap was obtained without difficulty. HPV testing was performed per age guideline. Patient was advised that pap results could take anywhere from 7 to 10 days to receive and our office will reach out to the patient with those once we have them. Patient can also view results via [employer]. I reinforced importance of condom use for STI prevention. Patient declined cultures to be performed with today's visit. Breast Exam: Upon examination, clinical breast exam was noted to be normal. Patient was counseled on breast self-awareness, including the importance of knowing what is normal for her own breasts and promptly reporting any changes such as new lumps, skin dimpling, nipple discharge, or pain. Screening mammogram recommended annually beginning at age 40 or earlier if risk factors are present. Discussed signs and symptoms of breast cancer and when to seek medical attention. Answered all patient questions. Contraceptive Counseling (if applicable): Patient is currently using IUD as a form of contraceptive. Follow Up: Patient is to return to our office in one year for annual exam unless needed otherwise. Documented by Zelda Soto LPN on behalf of: Murray Powell DO documented in this encounter Plan of Treatment DateTypeDepartmentCare Team (Latest Contact Info)Rugtakufkyp13/06/2026 9:30 AM ESTProcedure Visit [facility] [address] [place] [phone] Murray Powell DO [address] [place] [address] 02/23/2026 10:00 AM ESTProcedure Visit [facility] [address] [facility] [place] [phone] Murray Powell DO [address] [place] [address] NameTypePriorityAssociated DiagnosesOrder SchedulePap SmearPathology and CytologyRoutine Well woman exam with routine gynecological exam Ordered: 02/08/2025HPV DNA probe, amplifiedMicrobiologyRoutine Well woman exam with routine gynecological exam Ordered: 02/08/2025documented as of this encounter Visit Diagnoses Diagnosis Well woman exam with routine gynecological exam Routine gynecological examination documented in this encounter Care Teams Team MemberRelationshipSpecialtyStart DateEnd Date Harish Andres MD [address] [place] [address] PCP - GeneralFamily Medicine10/16/23 Bina Hilton NP Nurse PractitionerFamily Medicine10/16/23documented as of this encounter
--- OUTSIDE RECORDS SUMMARY | 2025-02-08 20:27 | XMS_ITS | Encounter Summary ---
Author Organization [facility] Address [address] [place] [address] Care Team Providers Care Business Continuity Consultant Name Role Phone Harish Andres MD Primary Care Provider Bina Hilton MILKER MACHINE Unavailable [phone] Encounter Details DateTypeDepartmentCare Team (Latest Contact Info)Tuxdcekqiaa97/23/2025amboo flowsheet [facility] [address] [place] [address] Murray Powell DO [address] [place], [facility] Social History Tobacco UseTypesPacks/DayYears UsedDateSmoking Tobacco: NeverSmokeless Tobacco: NeverAlcohol UseStandard Drinks/WeekCommentsNever0 (1 standard drink = 0.6 oz pure alcohol)caffeine: 1-2 cups per [id number] Health LiteracyAnswerDate Recorded How often do you [...] FamilyNot on file10/29/2023How often do you attend methodist or pentecostal services? Never4Do you belong to any clubs or organizations such as methodist groups, unions, fraternal or athletic groups, or school groups?No10/29/2023How often do you attend meetings of the clubs or organizations you belong to?Never 10/29/2023re you , , , , never , or living with a partner?Tixxkgo1410/29/2023UDIT-CAnswerDate RecordedQ1: How often do you have a [...] hard at all10/29/2023HQ-2AnswerDate Recorded Patient Health Questionnaire-2 [id number] [facility] hospital [place] of Occupational Health - Occupational Stress QuestionnaireAnswerDate RecordedDo you feel stress - tense, restless, nervous, or anxious, or unable to sleep at night because your mind is troubled all the time - these days?Only a crkzvm5410/29/2023Exercise Vital SignAnswerDate RecordedOn average, how many days [...] Moved in the Last Year Not on file4At any time in the past 12 months, were you homeless or living in a care home (including now)?No4CommentsNoSex and Gender InformationValueDate RecordedSex Assigned at BirthNot on fileLegal SexFemale 05/01/2022 6:39 PM EDTGender IdentityNot on fileSexual OrientationNot on file documented as of this encounter Plan of Treatment DateTypeDepartmentCare Team (Latest Contact Info)Ndkocmsfgwa56/06/2026 9:30 AM ESTProcedure Visit [facility] [address] [place] [address] Murray Powell, DO [address] [place], [place] [address] 02/23/2026 10:00 AM ESTProcedure Visit [facility] [address] [place] [phone] Murray Powell, DO [address] [place], [facility]11 documented as of this encounter Visit Diagnoses Not on filedocumented in this encounter Care Teams Team MemberRelationshipSpecialtyStart DateEnd Date Harish Andres MD [address] [place] [phone] PCP - GeneralFamily Medicine10/16/23 Bina Hilton NP Nurse PractitionerFamily Medicine10/16/23documented as of this encounter
--- OUTSIDE RECORDS SUMMARY | 2025-02-08 20:27 | XMS_ITS | Clinical Summary ---
Author Organization [facility] Address [address] [place] [address] Care Team Providers Care Web Offset Press Feeder Name Role Phone Harish Andres MD Primary Care Provider [phone] Bina Hilton NP Unavailable [phone] Allergies Active AllergyReactionsCriticalityNoted DateCommentsPenicillin V103/16/2024 Other Reaction(s): rash MoyenfjplfxWvbdGlb61/26/2023 Medications MedicationSigDispense QuantityRefillsLast FilledStart DateEnd DateStatus PARAGARD INTRAUTERINE COPPER IU 1 Intra Uterine Device by Intrauterine route 1 time Lot # [id number] Exp 02/2025 # [id number], [facility]#: [id number]/20/2022Active citalopram (CeleXA) 10 MG tablet Indications:ROHITH (generalized anxiety disorder)Take 1 tablet (10 mg) by mouth Daily 90 tablet 5Active ferrous sulfate 325 (65 Fe) MG EC tablet Take 325 mg by mouth in the morning and 325 mg in the evening. Take with meals. 5Active Active Problems ProblemNoted DateDiagnosed DateIron deficiency ccdqej8308/09/2024 Assessment & Plan (08/30/2024 11:12 AM EDT): Currently prescribed ferrous sulfate twice a day Check labs in about 3 weeks, order given Dizziness and epittnktm65/10/2025 Assessment & Plan (08/30/2024 11:12 AM EDT): Reviewed labs Improving with addition of ferrous sulfate Check labs in about 3 weeks Assessment & Plan (07/27/2024 10:59 AM EDT): Unclear etiology DD: hypoglycemia, panic attack, cardiac arrhythmia Keep log book fu in 4 weeks Check labs Tcbyhcfplaja03/10/2025GAD (generalized anxiety disorder)02/18/2023 Assessment & Plan (08/30/2024 11:13 AM EDT): [...] in past 6 months. C/w same. Wellness rntuujmgrxj65/02/2024 Assessment & Plan (07/27/2024 6:32 AM EDT): No wellness exam completed today, only labs ordred Assessment & Plan (02/18/2023 11:27 AM EST): Annual Wellness Visit. Reviewed medical surgical and social hx. Reviewed medications. Recommended to follow up with OBGYN for PAP smear. No complains to offer. Resolved Problems ProblemNoted DateDiagnosed DateResolved DateIDA (iron deficiency anemia) Encounters DateTypeDepartmentCare EelsQofmimqeogn34/23/2025 1:00 PM ESTProcedure Visit [facility] [address] [place] [address] [place] [address] Murray Powell, DO Well woman exam with routine gynecological exam02/08/2025amboo flowsheet [facility] [address] [address] Murray Powell DO 02/08/20257040Kyyxfq24/14/1520Ugtwog57/01/2025Telephone [facility] [address] [address] Yi Brewer MA 12/16/2024Telephone [facility] [address] [address] Marion Rose MA 12/14/2024Telephone [facility] [address] [address] Marion Rose MA 12/13/2024 8:50 AM EDTOffice Visit [facility] [address] [address] Ina Tee PA Yeast infection (Primary Dx); Vaginal itching; Vaginal odor; Vaginal gyxgqaral96/27/2025External Result Encounter [facility] Unsolicited Bernice Mulligan NP 12/13/2024amboo flowsheet [facility] [address] [address] Ina Tee, PA 12/06/20245360Iuxhkc94/20/2025Orders Only [facility] [address] [address] Adelina Retana LPN from Last 3 Months Family History Medical HistoryRelationNameCommentsHypertensionFatherCancerMaternal Grandmother DiabetesMaternal GrandmotherHypertensionMotherCoronary artery diseaseOtherLung cancerOtherRelationNameStatusCommentsFatherAliveMaternal GrandmotherMotherAlive OtherSisterAlive Social History Tobacco UseTypesPacks/DayYears UsedDateSmoking Tobacco: NeverSmokeless Tobacco: Never Tobacco Cessation:Counseling Given: No Alcohol UseStandard Drinks/WeekCommentsNever0 (1 standard drink = 0.6 oz pure alcohol)caffeine: 1-2 cups per [id number] Health LiteracyAnswerDate RecordedHow often do you need to have someone help you when you read instructions, pamphlets, or other written material from your doctor or pharmacy?Never 10/29/2023Social Connection and Isolation PanelAnswerDate RecordedIn a typical week, how many times do you talk on the phone with family, friends, or neighbors?Once a week10/29/2023Frequency of Social Gatherings with Friends and FamilyNot on file10/29/2023How often do you attend sikhism or yazdanism services? Never10/29/2023o you belong to any clubs or organizations such as sikhism groups, unions, fraternal or athletic groups, or school groups?No10/29/2023How often do you attend meetings of the clubs or organizations you belong to?Never 10/29/2023re you , , , , never , or living with a partner?Mcmqiqn6410/29/2023UDIT-CAnswerDate RecordedQ1: How often do you have a [...] hard at all10/29/2023HQ-2AnswerDate Recorded Patient Health Questionnaire-2 Xrevf080Finut[facility] of Occupational Health - Occupational Stress QuestionnaireAnswerDate RecordedDo you feel stress - tense, restless, nervous, or anxious, or unable to sleep at night because your mind is troubled all the time - these days?Only a htspxd2610/29/2023Exercise Vital SignAnswerDate RecordedOn average, how many days [...] EDTGender IdentityNot on fileSexual OrientationNot on file Last Filed Vital Signs Vital SignReadingTime TakenCommentsBlood Lzcjcnpu806/6402/08/2025 1:05 PM EST Utqnm660608/30/2024 10:45 AM MRWQrrrpsejfmo84.8 ??C (98.3 ??F)08/30/2024 10:45 AM EDTRespiratory Cyhb940008/30/2024 10:45 AM EDTOxygen Zyeiezudkx54%08/30/2024 10:45 AM EDTInhaled Oxygen Concentration--Aszoyy59.9 kg (140 lb 12.8 oz)02/08/2025 1:05 PM JHZFxlkfe376.6 cm (5' 6 )10/30/2023 8:37 AM EDTBody Mass Index22.73 10/30/2023 8:37 AM EDT Plan of Treatment DateTypeDepartmentCare Team (Latest Contact Info)Mxtuatmytws78/06/2026 9:30 AM ESTProcedure Visit [facility] [address] [place] [address] [place] [address] Murray Powell, DO [address] [place], [place] [id number] 02/23/2026 10:00 AM ESTProcedure Visit [facility] [address] [place] [address] [place] [address] Murray Powell, DO [address] [place] [address] Procedures Procedure NamePriorityDate/TimeAssociated DiagnosisCommentsRECURRENT VAGINITIS (HTRX)Bbkqmpr9312/13/2024 11:53 AM EDT POCT URINALYSIS EXUEWFNMMmwcoey77/27/2025 9:02 AM EDT Vaginal itching Vaginal odor Vaginal discharge from Last 3 Months Results * (ABNORMAL) RECURRENT VAGINITIS (HTRX) (12/13/2024 11:53 AM EDT)ComponentValue Ref RangeTest MethodAnalysis TimePerformed AtPathologist SignatureATOPOBIUM WUHVENX18.472(A)19.961 - 24.689 ppm12/14/2024 6:52 AM EDTHealthTrackRx at LabPortATOPOBIUM VAGINAEDetected(A)19.961 - 24.689 ppm12/14/2024 6:52 AM EDT [facility] at LabPortBVAB 2,3 (BACTERIAL VAGINOSIS ASSOCIATED BACTERIA 2, 3); MOBILUNCUS SPP10.656(A)19.961 - 24.689 ppm12/14/2024 6:52 AM EDT [facility] at LabPortBVAB 2,3 (BACTERIAL VAGINOSIS ASSOCIATED BACTERIA 2, 3); MOBILUNCUS SPPDetected(A)19.961 - 24.689 ppm12/14/2024 6:52 AM EDT [facility] at LabPortCANDIDA ALBICANS, PARAPSILOSIS, UJFCWAFFMD861.000 - 30.347 ppm12/14/2024 6:52 AM EDTHealthTrackRx at LabPortCANDIDA ALBICANS, PARAPSILOSIS, TROPICALISNot Koptzuwj95.000 - 30.347 ppm12/14/2024 6:52 AM EDT [facility] at LabPortCANDIDA KGLGZNZI916.000 - 31.618 ppm12/14/2024 6:52 AM EDTHealthTrackRx at LabPortCANDIDA GLABRATANot Wocgsohs07.000 - 31.618 ppm 12/14/2024 6:52 AM EDTHealthTrackRx at LabPortCANDIDA RYFBFD920.000 - 30.873 ppm12/14/2024 6:52 AM EDTHealthTrackRx at LabPortCANDIDA KRUSEINot Detected 23.000 - 30.873 ppm12/14/2024 6:52 AM EDTHealthTrackRx at LabPortCHLAMYDIA TQZHNWNAWTY465.000 - 31.586 ppm12/14/2024 6:52 AM EDTHealthTrackRx at LabPort CHLAMYDIA TRACHOMATISNot Arjcbcme81.000 - 31.586 ppm12/14/2024 6:52 AM EDT [facility] at LabPortGARDNERELLA YHCBUYEQU51.77(A)19.961 - 24.689 ppm 12/14/2024 6:52 AM EDTHealthTrackRx at LabPortGARDNERELLA VAGINALISDetected(A) 19.961 - 24.689 ppm12/14/2024 6:52 AM EDTHealthTrackRx at LabPortMEGASPHAERA (TYPES 1, 2)12.966(A)19.961 - 24.689 ppm12/14/2024 6:52 AM EDTHealthTrackRx at LabPortMEGASPHAERA (TYPES 1, 2)Detected(A)19.961 - 24.689 ppm12/14/2024 6:52 AM EDTHealthTrackRx at LabPortNEISSERIA AOGYGYWIENF783.000 - 32.587 ppm 12/14/2024 6:52 AM EDTHealthTrackRx at [facility] SystemNEISSERIA GONORRHOEAENot Ogycitnq67.000 - 32.587 ppm12/14/2024 6:52 AM EDTHealth[facility] at [facility] TRICHOMONAS VODHYCSTX163.000 - 31.995 ppm12/14/2024 6:52 AM EDTHealthTrackRx at [facility] Health SystemTRICHOMONAS VAGINALISNot Hqcvuxkl91.000 - 31.995 ppm12/14/2024 6:52 AM EDTHealthTrackRx at [facility] SystemMYCOPLASMA XDYSDAOYJV809.961 - 24.689 ppm 12/14/2024 6:52 AM EDTHealthTrackRx at [facility] Health SystemMYCOPLASMA GENITALIUMNot Icbzohwr03.961 - 24.689 ppm12/14/2024 6:52 [address]Health[facility]Rx [address] [facility], C; MEFA19.744(A)23.000 - 27.500 ppm12/14/2024 6:[address] [address] [facility], C; MEFADetected(A)23.000 - 27.500 ppm12/14/2024 6:52 AM EDT [facility] B, TET M18.798(A)23.000 - 27.500 ppm12/14/2024 6:52 AM EDTHealthTrackRx at [facility] B, TET MDetected(A)23.000 - 27.500 ppm 12/14/2024 6:52 AM EDTHealthTrackRx at [facility] Health SystemSpecimen (Source)Anatomical Location / LateralityCollection Method / VolumeCollection TimeReceived Time Rwrcrc2812/13/2024 11:53 AM EDT1 1:38 AM EDT Narrative Authorizing ProviderResult TypeResult StatusBernice Mulligan NPLAB BLOOD ORDERABLESFinal ResultPerforming OrganizationAddressCity/State/ZIP CodePhone Number [facility] [place] [address] [place] [address] * (ABNORMAL) POCT urinalysis dipstick manually resulted (12/13/2024 9:02 AM EDT) ComponentValueRef RangeTest MethodAnalysis TimePerformed AtPathologist SignatureColor, UARedClarity, UACloudyGlucose, UANegativeNegative - 1999(110) ++++ mg/dLBilirubin, UANegativeNegative - 4(70) +++ mg/dLKetones, UANegative Negative - 160(16) ++++ mg/dLSpec Grav, UA1.0151 - 1.03Blood, UAPositive Negative - 50 Rodri/mcLComment:3+pH, UA6.55 - 9Protein, UAPositiveNegative - 1999(20) ++++ mg/dLComment:1+Urobilinogen, UA1.00.2 - 12 mg/dLLeukocytes, UA2+ Negative - 500+++ Zabrina/mcLNitrite, UANegativeNegative - PositiveSpecimen (Source)Anatomical Location / LateralityCollection Method / VolumeCollection TimeReceived GmmoAcqee63/27/2025 9:02 AM EDT Narrative Authorizing ProviderResult TypeResult StatusBernice Mulligan NPPOINT OF CARE TEST ENTER/EDIT ORDERABLESFinal Result from Last 3 Months Insurance Care Teams Team MemberRelationshipSpecialtyStart DateEnd Date Harish Andres MD [address] [place] [phone] PCP - GeneralFamily Medicine10/16/23 Bina Hilton NP Nurse PractitionerFamily Medicine10/16/23
--- OUTSIDE RECORDS SUMMARY | 2025-02-08 20:27 | XMS_ITS | Encounter Summary ---
Author Organization [facility] Address [address] [place] [address] Care Team Providers Care Flooring Salesperson Name Role Phone Harish Andres MD Primary Care Provider [phone] Bina Hilton OFFICE AUDITOR Unavailable [phone] Encounter Details DateTypeDepartmentCare Team (Latest Contact Info)Wtdzcehnsao76/14/2025Travel Social History Tobacco UseTypesPacks/DayYears UsedDateSmoking Tobacco: NeverSmokeless Tobacco: NeverAlcohol UseStandard Drinks/WeekCommentsNever0 (1 standard drink = 0.6 oz pure alcohol)caffeine: 1-2 cups per [id number] Health LiteracyAnswerDate Recorded How often do you [...] FamilyNot on file10/29/2023How often do you attend taoism or jain services? Never4Do you belong to any clubs or organizations such as taoism groups, unions, fraternal or athletic groups, or school groups?No10/29/2023How often do you attend meetings of the clubs or organizations you belong to?Never 10/29/2023re you , , , , never , or living with a partner?Odhxibs4410/29/2023UDIT-CAnswerDate RecordedQ1: How often do you have a [...] hard at all10/29/2023HQ-2AnswerDate Recorded Patient Health Questionnaire-2 Uirqm451FinSt. [facility] of Occupational [facility] - Occupational Stress QuestionnaireAnswerDate RecordedDo you feel stress - tense, restless, nervous, or anxious, or unable to sleep at night because your mind is troubled all the time - these days?Only a uaslxj9310/29/2023Exercise Vital SignAnswerDate RecordedOn average, how many days [...] homeless or living in a mcc (including now)?No10/29/2023CommentsNoSex and Gender InformationValueDate RecordedSex Assigned at BirthNot on fileLegal SexFemale 05/01/2022 6:39 PM EDTGender IdentityNot on fileSexual OrientationNot on file documented as of this encounter Plan of Treatment DateTypeDepartmentCare Team (Latest Contact Info)Tgeinxqlsmu14/06/2026 9:30 AM ESTProcedure Visit [facility] [address] [place] [address] Murray Powell, DO [address] [place] [address] 02/23/2026 10:00 AM ESTProcedure Visit [facility] [address] [address] Murray Powell, DO [address] [facility] [place] [address] documented as of this encounter Visit Diagnoses Not on filedocumented in this encounter Care Teams Team MemberRelationshipSpecialtyStart DateEnd Date Harish Andres MD [address] [place] [address] PCP - GeneralFamily Medicine10/16/23 Bina Hilton NP Nurse PractitionerFamily Medicine10/16/23documented as of this encounter
--- OUTSIDE RECORDS SUMMARY | 2025-02-08 20:27 | XMS_ITS | Encounter Summary ---
Author Organization [facility] Address [address] [place] [address] Care Team Providers Care Senior Electrical Designer Name Role Phone Harish Andres MD Primary Care Provider [phone] Bina Hilton INTERVENTIONAL RADIOLOGY TECH Unavailable [phone] Encounter Details DateTypeDepartmentCare Team (Latest Contact Info)Xnqlejpnazz13/23/2025Travel Social History Tobacco UseTypesPacks/DayYears UsedDateSmoking Tobacco: NeverSmokeless Tobacco: NeverAlcohol UseStandard Drinks/WeekCommentsNever0 (1 standard drink = 0.6 oz pure alcohol)caffeine: 1-2 cups per [id number] Health LiteracyAnswerDate Recorded How often do you [...] FamilyNot on file10/29/2023How often do you attend latter day or mormon services? Never4Do you belong to any clubs or organizations such as latter day groups, unions, fraternal or athletic groups, or school groups?No10/29/2023How often do you attend meetings of the clubs or organizations you belong to?Never 10/29/2023re you , , , , never , or living with a partner?Jqdjcbb4910/29/2023UDIT-CAnswerDate RecordedQ1: How often do you have a [...] hard at all10/29/2023HQ-2AnswerDate Recorded Patient Health Questionnaire-2 Tlvdj915FinInd[facility] of Occupational [facility] - Occupational Stress QuestionnaireAnswerDate RecordedDo you feel stress - tense, restless, nervous, or anxious, or unable to sleep at night because your mind is troubled all the time - these days?Only a lwdcpt7310/29/2023Exercise Vital SignAnswerDate RecordedOn average, how many days [...] or living in a nursing home (including now)?No10/29/2023CommentsNoSex and Gender InformationValueDate RecordedSex Assigned at BirthNot on fileLegal SexFemale 05/01/2022 6:39 PM EDTGender IdentityNot on fileSexual OrientationNot on file documented as of this encounter Plan of Treatment DateTypeDepartmentCare Team (Latest Contact Info)Agjtkoalicd28/06/2026 9:30 AM ESTProcedure Visit [facility] [address] [place] [address] Murray Powell, DO [address] [place] [address] 02/23/2026 10:00 AM ESTProcedure Visit [facility] [address] [place] [address] Murray Powell, DO [address] [place] [address] documented as of this encounter Visit Diagnoses Not on filedocumented in this encounter Care Teams Team MemberRelationshipSpecialtyStart DateEnd Date Harish Andres MD [address] [place] [address] PCP - GeneralFamily Medicine10/16/23 Bina Hilton NP Nurse PractitionerFamily Medicine10/16/23documented as of this encounter
[2025-02-11 19:10] LABS: Age Gdln ACOG Testing Note (.); IGP, Aptima HPV, rfx 16/18,45 Note (.)
== END 2025-02-08 20:25 | disposition home or self-care (01) ==
LOC: LAB 20:24
PROVIDERS: PCP Nurse Practitioner; Visit Provider Obstetrics & Gynecology
DX: Z01.419 Encounter for gynecological examination (general) (routine) without abnormal findings (principal)
CPT/HCPCS: 88175